=== PATIENT | male | born 1955 | race Caucasian/White ===

== ENCOUNTER 2022-10-08 07:18 | Outpatient (REF) | payer MEDICARE, OTHER, SELFPAY ==
[2022-10-08 07:50] LABS: MANUAL DIFF FLAG NO
[2022-10-08 08:20] LABS: Basophils Percent Auto 0.6 % (0-2); Eosinophils Absolute Auto 0.1 X10*3/uL (0.0-0.4); Eosinophils Percent Auto 2.2 % (0-4); Hematocrit 40.2 % (42.0-52.0); Hemoglobin 13.8 g/dl (14.0-18.0); Imm Gran Abs Auto 0.01 X10*3/uL (0.00-0.03); Imm Gran Pct Auto 0.3 % (0.0-0.4); Lymphocytes Absolute Auto 1.3 X10*3/uL (1.2-4.9); Lymphocytes Percent Auto 34.6 % (20-40); Mean Corpuscular HGB Conc 34.3 g/dl (31.0-36.0); Mean Corpuscular Hemoglobin 34.1 pg (27.0-33.0); Mean Corpuscular Volume 99.3 fL (80.0-98.0); Mean Platelet Volume 9.6 fL (9.4-12.4); Monocytes Absolute Auto 0.4 X10*3/uL (0.1-1.2); Monocytes Percent Auto 10.5 % (2-11); Neutrophils Absolute Auto 1.9 x10*3/uL (2.0-8.3); Neutrophils Percent Auto 51.8 % (45-73); Platelet Count 175 X10*3/uL (160-400); Red Blood Count 4.05 X10*6/uL (4.60-5.80); Red Cell Distribution Width 12.3 % (11.0-16.0); White Blood Count 3.6 X10*3/uL (4.8-10.8)
[2022-10-08 09:02] LABS: Appearance Urine Clear; Color Urine Yellow; Glucose Urine UA Negative (Negative); Leukocyte Esterase Urine Negative (Negative); Nitrite Urine Negative (Negative); PH 5.5 (5.0-9.0); Specific Gravity - Urine 1.025 (1.005-1.025); Urine Blood Negative (Negative); Urine Ketones Negative (Negative); Urine Protein Negative (Neg-Trace)
[2022-10-08 09:09] LABS: Alanine Aminotransferase 38 U/L (0-40); Albumin Level 4.2 g/dL (3.5-5.0); Alkaline Phosphatase 67 U/L (39-117); Anion Gap 12 (12-20); Aspartate Amino Transferase 36 U/L (5-37); Bilirubin Total 0.5 mg/dL (0.0-1.0); Blood Urea Nitrogen 21 mg/dL (9-16); Calcium 9.7 mg/dL (8.4-10.2); Carbon Dioxide 28 mmol/L (22-29); Chloride 105 mmol/L (96-108); Cholesterol 263 mg/dL; Estimated Glomerular Filt Rate > 60; Free T4 (Free Thyroxine) 0.94 ng/dL (0.71-1.85); Glucose Fasting 93 mg/dL (60-99); HDL Cholesterol 83 mg/dL; LDL Cholesterol Calculated 168 mg/dl; Potassium 5.5 mmol/L (3.3-5.1); Sodium 139 mmol/L (135-145); Thyroid Stimulating Hormone 1.28 uIU/mL (0.32-4.0); Total Protein 6.2 g/dL (6.5-8.0); Triglycerides 64 mg/dL
[2022-10-08 09:34] LABS: Creatinine Urine 139.63 mg/dL; Microalbum/Creatinine Ratio Ur 3.5 ug/mg cr
[2022-10-11 02:54] LABS: Triiodothyronine T3 Total 62 ng/dL (76-181)
== END 2022-10-08 07:19 | disposition home or self-care (01) ==
LOC: HO.LAB 07:18
PROVIDERS: PCP Family Medicine; Visit Provider Family Medicine
DX: Z00.00 Encounter for general adult medical examination without abnormal findings (principal); I10 Essential (primary) hypertension; E03.9 Hypothyroidism, unspecified; Z12.5 Encounter for screening for malignant neoplasm of prostate
CPT/HCPCS: 36415; 80053; 80061; 81003; 82043; 84153; 84439; 84443; 84480; 85025

== ENCOUNTER 2022-10-11 07:07 | Outpatient (REF) | payer MEDICARE, SELFPAY ==
[2022-10-11 13:45] LABS: Anion Gap 12 (12-20); Blood Urea Nitrogen 27 mg/dL (9-16); Calcium 9.1 mg/dL (8.4-10.2); Carbon Dioxide 28 mmol/L (22-29); Chloride 104 mmol/L (96-108); Estimated Glomerular Filt Rate > 60; Glucose Fasting 84 mg/dL (60-99); Sodium 139 mmol/L (135-145)
== END 2022-10-11 07:08 | disposition home or self-care (01) ==
LOC: HO.WFDLDS 07:07
PROVIDERS: Visit Provider Family Medicine
DX: E87.5 Hyperkalemia (principal)
CPT/HCPCS: 36415; 80048

== ENCOUNTER → 2022-10-19 13:41 | Outpatient (BNVA) | payer MEDICARE, OTHER, SELFPAY | PROVIDERS: PCP Family Medicine; Referring Provider Family Medicine; Visit Provider Internal Medicine | DX: I95.1 Orthostatic hypotension (principal); E03.9 Hypothyroidism, unspecified | CPT/HCPCS: 93005; 99202 ==

== ENCOUNTER → 2023-01-18 13:59 | Outpatient (BNVA) | payer MEDICARE, OTHER, SELFPAY | PROVIDERS: PCP Family Medicine; Referring Provider Family Medicine; Visit Provider Internal Medicine | DX: I95.1 Orthostatic hypotension (principal) | CPT/HCPCS: 99212 ==

== ENCOUNTER 2023-02-03 02:16 | Emergency (ER) | payer MEDICARE, OTHER, SELFPAY ==
--- NOTE | 2023-02-03 02:21 | ECG_ITS ---
Test Reason : syncope Blood Pressure : / mmHG Vent. Rate : 043 BPM Atrial Rate : 043 BPM P-R Int : 196 ms QRS Dur : 090 ms QT Int : 480 ms P-R-T Axes : 068 035 059 degrees QTc Int : 405 ms Marked sinus bradycardia Minimal voltage criteria for LVH, may be normal variant ( Sokolow-Olguin ) ST elevation, consider early repolarization, pericarditis, or injury Abnormal ECG No previous ECGs available Referred By: Generic ED Physician Electronically Signed By:ALIDA EDWARD MD
[2023-02-03 02:25] VITALS: BP 121/75; PULSE 40; RESP 16; TEMP 36.5; O2SAT 98; BMI 24.3
[2023-02-03 02:50] LABS: MANUAL DIFF FLAG NO
[2023-02-03 02:51] LABS: Basophils Percent Auto 0.5 % (0-2); Eosinophils Absolute Auto 0.1 X10*3/uL (0.0-0.4); Hematocrit 37.6 % (42.0-52.0); Hemoglobin 13.5 g/dl (14.0-18.0); Imm Gran Abs Auto 0.01 X10*3/uL (0.00-0.03); Imm Gran Pct Auto 0.3 % (0.0-0.4); Lymphocytes Absolute Auto 1.4 X10*3/uL (1.2-4.9); Lymphocytes Percent Auto 39.2 % (20-40); Mean Corpuscular HGB Conc 35.9 g/dl (31.0-36.0); Mean Corpuscular Hemoglobin 34.3 pg (27.0-33.0); Mean Corpuscular Volume 95.4 fL (80.0-98.0); Mean Platelet Volume 8.9 fL (9.4-12.4); Monocytes Absolute Auto 0.4 X10*3/uL (0.1-1.2); Neutrophils Absolute Auto 1.7 x10*3/uL (2.0-8.3); Platelet Count 160 X10*3/uL (160-400); Red Blood Count 3.94 X10*6/uL (4.60-5.80); Red Cell Distribution Width 12.4 % (11.0-16.0); White Blood Count 3.7 X10*3/uL (4.8-10.8)
--- NOTE | 2023-02-03 02:59 | ED.SYNCOPE ---
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 Patient denies any chest pain or palpitation bradycardic 35-40 beats per minute which is his baseline Related Data Home Medications Medication Instructions Recorded Confirmed multivitamin (Multiple Vitamins 1 tab PO DAILY 10/19/22 01/18/23 tablet) omega 2-rsn-xqo-fish oil 60 mg-90 1 cap PO DAILY 10/19/22 01/18/23 mg-500 mg capsule (Fish Oil) electrolytes-dextrose oral solution 5 ml PO Q15M PRN 01/18/23 01/18/23 Previous Rx's Medication Instructions Recorded levothyroxine 75 mcg tablet 75 mcg PO DAILY 90 days #90 tabs 12/09/22 Allergies Allergy/AdvReac Type Severity Reaction Status Date / Time No Known Allergies Allergy Verified 02/03/23 02:31 Review of Systems Review of Systems: Yes all other systems are reviewed and are negative [facility] Past Medical History Medical History Hypothyroidism Family History Family History Maternal Grandfather Diabetes Hypertension Maternal Grandmother Hypertension Diabetes Social History Social History Housing: House Patient Tobacco Use Status: Never used Tobacco Second Hand Smoke Exposure: No Advance Directives: No Advance Directives Information Provided: Yes service: No Current occupational status: retired Physical Exam Vital Signs: Vital Signs: Last Vital Signs Temp 97.7 F 02/03/23 02:25 Pulse 46 L 02/03/23 03:11 Resp 16 02/03/23 02:25 BP 109/72 02/03/23 03:11 Pulse Ox 98 02/03/23 02:25 O2 Del Method Room Air 02/03/23 02:25 BMI result Body Mass Index 24.3 Appearance: Alert. Oriented X3. No acute distress. Eyes: PERRLA, No Nystagmus ENT: Pharynx normal. Oral Mucosa moist Neck: Normal inspection. Neck supple. CVS: Bradycardic, no rub/murmur/ gallop Pulses normal. Respiratory: No respiratory distress. Equal air entry bilateral, no wheezing/rales/rhonchi Abdomen: Soft and nontender. Bowel sounds are present, no mass palpable, no CVA tenderness Skin: Skin warm and dry. Normal skin color. Normal skin turgor. Extremities: No lower extremity edema. No calf tenderness Neuro: Oriented X 3. No motor deficit. No sensory deficit.No cerebellar signs , cranial nerves II-XII intact Medications Administered Discontinued Medications Generic Name Dose Route Start Last Admin Trade Name Freq PRN Reason Stop Dose Admin Sodium Chloride 1,000 mls @ 999 mls/hr 02/03/23 03:08 02/03/23 03:31 Ns IV 02/03/23 04:08 999 mls/hr .Q1H1M ONE Administration Medical Decision Making Medical Decision Making [facility] Narrative: Patient with history of orthostatic hypertension came with syncope episode likely from micturition hypotension with decreased fluid intake and work out outside in the heat. 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 02/03/23 02:46 02/03/23 02:46 Labs: Lab Results 02/03/23 02/03/23 02/03/23 Range/Units 02:46 02:46 02:46 WBC 3.7 L (4.8-10.8) X10*3/uL RBC 3.94 L (4.60-5.80) X10*6/uL Hgb 13.5 L (14.0-18.0) g/dl Hct 37.6 L (42.0-52.0) % MCV 95.4 (80.0-98.0) fL MCH 34.3 H (27.0-33.0) pg MCHC 35.9 (31.0-36.0) g/dl RDW 12.4 (11.0-16.0) % Plt Count 160 (160-400) X10*3/uL MPV 8.9 L (9.4-12.4) fL Immature Gran % (Auto) 0.3 (0.0-0.4) % Neut % (Auto) 45.0 (45-73) % Lymph % (Auto) 39.2 (20-40) % Placer % (Auto) 12.0 H (2-11) % Eos % (Auto) 3.0 (0-4) % Baso % (Auto) 0.5 (0-2) % Lymph # (Auto) 1.4 (1.2-4.9) X10*3/uL Placer # (Auto) 0.4 (0.1-1.2) X10*3/uL Eos # (Auto) 0.1 (0.0-0.4) X10*3/uL Baso # (Auto) 0.0 (0.0-0.2) X10*3/uL Abs Immat Gran (auto) 0.01 (0.00-0.03) X10*3/uL Absolute Neuts (auto) 1.7 L (2.0-8.3) x10*3/uL Absolute Nucleated RBC 0.000 (0.0-0.012) X10*3/uL Nucleated RBC % (auto) 0.0 (0.0-0.2) /100WBC Sodium 139 (135-145) mmol/L Potassium 4.2 (3.3-5.1) mmol/L Chloride 105 (96-108) mmol/L Carbon Dioxide 27 (22-29) mmol/L Anion Gap 11 L (12-20) BUN 32 H (9-16) mg/dL Creatinine 1.15 (0.5-1.4) mg/dL Estim Creat Clear Calc 59.8 Estimated GFR > 60 Random Glucose 102 (60-115) mg/dL Calcium 9.4 (8.4-10.2) mg/dL Total Creatine Kinase 564 H (38-174) U/L Troponin I High Sens 11.3 (<3.5-35.0) ng/L Urine Color Urine Appearance Urine pH (5.0-9.0) Ur Specific [place] (1.005-1.025) Urine Protein (Neg-Trace) mg/dL Urine Glucose (UA) (Negative) mg/dL Urine Ketones (Negative) mg/dL Urine Blood (Negative) Urine Nitrite (Negative) Ur Leukocyte Esterase (Negative) 02/03/23 02/03/23 Range/Units 04:12 04:18 WBC (4.8-10.8) X10*3/uL RBC (4.60-5.80) X10*6/uL Hgb (14.0-18.0) g/dl Hct (42.0-52.0) % MCV (80.0-98.0) fL MCH (27.0-33.0) pg MCHC (31.0-36.0) g/dl RDW (11.0-16.0) % Plt Count (160-400) X10*3/uL MPV (9.4-12.4) fL Immature Gran % (Auto) (0.0-0.4) % Neut % (Auto) (45-73) % Lymph % (Auto) (20-40) % Placer % (Auto) (2-11) % Eos % (Auto) (0-4) % Baso % (Auto) (0-2) % Lymph # (Auto) (1.2-4.9) X10*3/uL Placer # (Auto) (0.1-1.2) X10*3/uL Eos # (Auto) (0.0-0.4) X10*3/uL Baso # (Auto) (0.0-0.2) X10*3/uL Abs Immat Gran (auto) (0.00-0.03) X10*3/uL Absolute Neuts (auto) (2.0-8.3) x10*3/uL Absolute Nucleated RBC (0.0-0.012) X10*3/uL Nucleated RBC % (auto) (0.0-0.2) /100WBC Sodium (135-145) mmol/L Potassium (3.3-5.1) mmol/L Chloride (96-108) mmol/L Carbon Dioxide (22-29) mmol/L Anion Gap (12-20) BUN (9-16) mg/dL Creatinine (0.5-1.4) mg/dL Estim Creat Clear Calc Estimated GFR Random Glucose (60-115) mg/dL Calcium (8.4-10.2) mg/dL Total Creatine Kinase (38-174) U/L Troponin I High Sens 11.2 (<3.5-35.0) ng/L Urine Color Yellow Urine Appearance Clear Urine pH 5.5 (5.0-9.0) Ur Specific [place] 1.020 (1.005-1.025) Urine Protein Negative (Neg-Trace) mg/dL Urine Glucose (UA) Negative (Negative) mg/dL Urine Ketones Negative (Negative) mg/dL Urine Blood Negative (Negative) Urine Nitrite Negative (Negative) Ur Leukocyte Esterase Negative (Negative) Independent Interpretation I performed an independent interpretation of an: EKG Interpretation: Sinus bradycardia heart rate 43 beats per minute LVH early repolarization changes no acute ischemia Discharge Plan Discharge Clinical Impression: Orthostatic hypotension Patient Disposition: Home, Self-Care Instructions: Hypotension (ED) Additional Instructions: Drink plenty of fluids Stay in a cool shaded area 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
[2023-02-03 03:05] LABS: Anion Gap 11 (12-20); Blood Urea Nitrogen 32 mg/dL (9-16); Calcium 9.4 mg/dL (8.4-10.2); Carbon Dioxide 27 mmol/L (22-29); Chloride 105 mmol/L (96-108); Creatinine Clr Calc Pharmacy 59.8; Estimated Glomerular Filt Rate > 60; Glucose Random 102 mg/dL (60-115); Potassium 4.2 mmol/L (3.3-5.1); Sodium 139 mmol/L (135-145)
[2023-02-03 03:08] VITALS: BP 106/64; PULSE 38
[2023-02-03 03:10] VITALS: BP 104/73; PULSE 43
[2023-02-03 03:11] VITALS: BP 109/72; PULSE 46
[2023-02-03 03:12] LABS: Troponin-I High Sensitivity 11.3 ng/L (<3.5-35.0)
[2023-02-03] MEDS: 0.9 % Sodium Chloride 1,000 ML 999 ML IV (03:31)
[2023-02-03 04:19] LABS: Appearance Urine Clear; Color Urine Yellow; Glucose Urine UA Negative (Negative); Leukocyte Esterase Urine Negative (Negative); Nitrite Urine Negative (Negative); PH 5.5 (5.0-9.0); Urine Blood Negative (Negative); Urine Ketones Negative (Negative); Urine Protein Negative (Neg-Trace)
[2023-02-03 04:41] LABS: Troponin-I High Sensitivity 11.2 ng/L (<3.5-35.0)
== END 2023-02-03 05:12 | disposition home or self-care (01) ==
PROVIDERS: Emergency Provider Internal Medicine; PCP Family Medicine
DX: I95.1 Orthostatic hypotension (principal); R00.1 Bradycardia, unspecified; Z79.899 Other long term (current) drug therapy
CPT/HCPCS: 36415; 80048; 81003; 82550; 84484; 85025; 93005; 99284

== ENCOUNTER 2023-03-13 11:43 | Outpatient (REF) | payer MEDICARE, OTHER, SELFPAY ==
[2023-03-13 14:26] LABS: Hematocrit 42.6 % (42.0-52.0); Hemoglobin 14.9 g/dl (14.0-18.0); Mean Corpuscular Volume 97.3 fL (80.0-98.0); Mean Platelet Volume 9.4 fL (9.4-12.4); Platelet Count 195 X10*3/uL (160-400); Red Blood Count 4.38 X10*6/uL (4.60-5.80); Red Cell Distribution Width 12.1 % (11.0-16.0); White Blood Count 6.3 X10*3/uL (4.8-10.8)
[2023-03-13 15:11] LABS: Folate > 20.0 ng/mL (> or = 4.0); TSH reflex Free T4 1.08 uIU/mL (0.32-4.0); Vitamin B12 1041 pg/mL (200-900)
== END 2023-03-13 11:44 | disposition home or self-care (01) ==
LOC: HO.WFDLDS 11:43
PROVIDERS: Visit Provider Nurse Practitioner Family
DX: E03.9 Hypothyroidism, unspecified (principal); D64.9 Anemia, unspecified
CPT/HCPCS: 36415; 82607; 82746; 84443; 85027

== ENCOUNTER 2023-05-27 11:54 | Emergency (ER) | payer MEDICARE, OTHER, SELFPAY ==
--- NOTE | ~2023-05-27 | XR_ITS ---
EXAMINATION: XR WRIST, RIGHT CLINICAL INFORMATION: Status post fall on outstretched hand. COMPARISON: None available. TECHNIQUE: PA, lateral, and oblique views of the right wrist. FINDINGS: The bones and soft tissues are normal. No fracture. Alignment is anatomic with normal joint spaces. No erosions or abnormal soft tissue calcifications. XR/XR wrist RT min 3V IMPRESSION: Unremarkable right wrist.
[2023-05-27 11:57] VITALS: BP 118/76; PULSE 68; RESP 18; TEMP 36.8; O2SAT 96; BMI 24.3
--- NOTE | 2023-05-27 11:57 | ED.UPPEXIN ---
HPI - Extremity Injury (Upper) General Chief Complaint: Extremity Injury, Upper Stated Complaint: r wrist inj Time Seen by Provider: 05/27/23 12:00 Source: patient Mode of arrival: ambulatory Limitations: no limitations History of Present Illness HPI narrative: Patient is a 67-year-old male, right-hand dominant, presents emergency department for a mechanical slip and fall on an outstretched hand earlier today while running a race without any head strike or loss of consciousness. He was able to complete the race and drive himself home 1 hour away. Pain is localized to the right wrist with tingling to the fingers. 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 Related Data Home Medications Medication Instructions Recorded Confirmed multivitamin (Multiple Vitamins 1 tab PO DAILY 10/19/22 03/13/23 tablet) omega 2-ush-xpk-fish oil 60 mg-90 1 cap PO DAILY 10/19/22 03/13/23 mg-500 mg capsule (Fish Oil) electrolytes-dextrose oral solution 5 ml PO Q15M PRN 01/18/23 03/13/23 Previous Rx's Medication Instructions Recorded levothyroxine 75 mcg tablet 75 mcg PO DAILY 90 days #90 tabs 12/09/22 Allergies Allergy/AdvReac Type Severity Reaction Status Date / Time No Known Allergies Allergy Verified 05/27/23 12:00 Review of Systems Review of Systems: Yes all other systems are reviewed and are negative PMFSH Past Medical History Attestation statement: The following information was validated with the patient. Source: old records reviewed Medical History Hypothyroidism Family History Family History Maternal Grandfather Diabetes Hypertension Maternal Grandmother Hypertension Diabetes Social History Social History Housing: House Alcohol intake: never Patient Tobacco Use Status: Never used Tobacco Smoked in Last 30 Days: No e-Cigarette/Vaping Use: Never Used Second Hand Smoke Exposure: No Use of substances other than those prescribed or required for medical reasons: No Advance Directives: No Advance Directives Information Provided: Yes service: No Current occupational status: retired Cognitive needs: No Hearing needs: No Vision needs: No Physical Exam Vital Signs: Vital Signs: Last Vital Signs Temp 98.2 F 05/27/23 11:57 Pulse 68 05/27/23 11:57 Resp 18 05/27/23 11:57 BP 118/76 05/27/23 11:57 Pulse Ox 96 05/27/23 11:57 O2 Del Method Room Air 05/27/23 11:57 BMI result Body Mass Index 24.3 Appearance: Alert.?Oriented to person, place and time. No acute distress.?Normal affect. Eyes: Pupils equal, round and reactive to light.? Neck: Normal inspection.? Neck supple.?? CVS: Heart sounds normal. Normal heart rate and rhythm.? Pulses normal.?? Respiratory: No respiratory distress.? Lung sounds clear to auscultation bilaterally?? Abdomen: Soft and non-tender. Skin: Skin warm and dry.? Normal skin color.? Extremities: Localized swelling to right wrist, no obvious deformity, 2+ radial pulse bilaterally Neuro: Moves all extremities spontaneously. Sensation intact bilaterally. No focal neuro deficits. Ambulates with normal steady gait. Course Course Course Narrative: This is an RME: Additional HPI, ROS, PE not included below will be deferred to primary provider. Patient is a 67-year-old male, right-hand dominant, presents emergency department for a mechanical slip and fall on an outstretched hand without any head strike or loss of consciousness. Pain is localized to the right wrist with tingling to the fingers. 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 No additional physical complaints. no head strike or LOC, unlikely ant ICH, follow-up with mechanical in nature to a slip while running. Extremity is neurovascularly intact distally. XR revealing no acute fracture dislocation. Differential Diagnosis Differential Diagnoses: The differential diagnosis associated with the presentation includes (Fracture, dislocation, sprain, neurovascular compromise) Independent Interpretation I performed an independent interpretation of an: Plain X-Ray Interpretation: Have personally interpreted XR imaging of the right wrist and agree with radiologist impression no acute fracture Radiology Impression Discussion of test interpretation with radiology: I have reviewed the radiologist's reading. Radiologist Impression: XR/XR wrist RT min 3V IMPRESSION: Unremarkable right wrist. ? Prescription Management I considered prescription management with: Pain Medication (Appropriate pain management with acetaminophen/ibuprofen) Discharge Plan Discharge Clinical Impression: Sprain and strain of wrist Patient Disposition: Home, Self-Care Instructions: Wrist Sprain (ED) Additional Instructions: Your x-ray today does not show any fracture dislocation. This is very reassuring. Please be sure to rest, apply ice to the area for 10-15 minutes 3-4 times daily, use Miko bandage for compression, elevate the arm when possible. You can take ibuprofen 200 mg, 3 tablets (600mg) every 6-8 hours as needed for pain, in addition to Tylenol 500 mg, 2 tablets (1,000mg) every 4-6 hours as needed for pain, but not to exceed 3 doses daily (3,000mg).? Return back to emergency department with any new or worsening symptoms or concerns. Follow-up with your primary care provider as needed. Prescriptions: No Action levothyroxine 75 mcg tablet 75 mcg PO DAILY 90 Days Qty: 90 3RF omega 4-yht-vuy-fish oil [Fish Oil] 60-90-500 mg capsule 1 cap PO DAILY multivitamin [Multiple Vitamins] Tablet 1 tab PO DAILY electrolytes-dextrose Solution 5 ml PO Q15M PRN Rx Instructions: until vomiting and/or diarrhea resolve for no more than 4 hours duration Referrals: Miguel Obrien MD [Primary Care Provider] - Interventions: ED Discharge Assessment Last Done: 05/27/23 12:47 Discharge Date/Time: 05/27/23 12:47
== END 2023-05-27 12:47 | disposition home or self-care (01) ==
PROVIDERS: Emergency Provider Emergency Medicine; PCP Family Medicine
DX: S63.501A Unspecified sprain of right wrist, initial encounter (principal); S66.911A Strain of unspecified muscle, fascia and tendon at wrist and hand level, right hand, initial encounter; W01.0XXA Fall on same level from slipping, tripping and stumbling without subsequent striking against object, initial encounter; Y93.02 Activity, running; Y92.9 Unspecified place or not applicable; Y99.9 Unspecified external cause status
CPT/HCPCS: 73110; 99283

== ENCOUNTER 2023-05-29 06:16 | Outpatient (REF) | payer MEDICARE, OTHER, SELFPAY ==
[2023-05-29 08:00] LABS: TSH reflex Free T4 1.43 uIU/mL (0.32-4.0)
== END 2023-05-29 06:17 | disposition home or self-care (01) ==
LOC: HO.LAB 06:16
PROVIDERS: PCP Family Medicine; Visit Provider Nurse Practitioner Family
DX: E03.9 Hypothyroidism, unspecified (principal)
CPT/HCPCS: 36415; 84443

== ENCOUNTER 2023-06-05 11:36 | Outpatient (AMB) | payer MEDICARE, OTHER, SELFPAY ==
[2023-06-05 11:45] VITALS: BP 110/62; PULSE 52; O2SAT 98; BMI 24.4
--- NOTE | 2023-06-05 11:45 | A.OFFPC_ITS ---
Vital Signs 06/05/23 11:45 Height 5 ft 7 in Weight 156 lb BMI 24.4 BP 110/62 Blood Pressure Location Rt brachial Position Sitting Pulse 52 Pulse Source Pulse Oximeter Pulse Oximetry (%) 98 Oxygen Delivery Method Room Air Intake Visit Reasons: hypothyroidism Intake Note: Patient is here to follow up on hypothyroid Allergies No Known Allergies Allergy (Verified 06/05/23 11:50) Tobacco use date assessed: 06/05/23 Fall risk assessment: 2 + Falls in past year Last assessed Fall Risk: 06/05/23 Dental Screening Dental Screen Date: 06/05/23 Did you have a dental visit in the last 12 months?: Yes Did you have a dental problem in the last 6 months where you did not have access to dental care?: No Was dental information given to patient?: No HPI hypothyroidism HPI Details 67 y/o male presents to f/u hypothyroidism. TSH level checked 05/29/23 and was 1.43. He is on levothyroxine 75 mcg daily. Pt also had a mild anemia with most recent lab draws. Pt reports he had sprained his wrist and had gone to the emergency department after a mechanical slip/fall on an outstretched hand while running a race. Pain was localized to the R wrist. PFSH Medical History (Updated 06/05/23 @ 12:18 by Yvon Maurice) Hypothyroidism Surgical History (Updated 06/05/23 @ 11:52 by Ayleen Paula [facility]) Hx of biopsy Family History Maternal Grandfather Diabetes Hypertension Maternal Grandmother Hypertension Diabetes Social History Housing: House Alcohol intake: never Patient Tobacco Use Status: Never used Tobacco e-Cigarette/Vaping Use: Never Used Second Hand Smoke Exposure: No service: No Current occupational status: retired Cognitive needs: No Hearing needs: No Vision needs: No Review of Systems Const Denies chills, Denies fatigue, Denies fever(s), Denies headache(s) and Denies weakness ENT Denies dizziness and Denies headache(s) Card Denies dyspnea Resp Denies cough, Denies dyspnea, Denies wheezing and Denies other (shortness of breath) Musc Denies numbness and Denies tingling Neuro Denies dizziness, Denies headache(s), Denies numbness, Denies tingling and Denies weakness Psych Denies anxiety and Denies depression Endo Denies fatigue Aller/Immun Denies wheezing Physical exam (Primary Care) Vital Signs: Last Vital Signs Pulse 52 06/05/23 11:45 BP 110/62 06/05/23 11:45 Pulse Ox 98 06/05/23 11:45 Oxygen Delivery Method Room Air 06/05/23 11:45 BMI result Body Mass Index 24.4 Tobacco/Smoking Status: Tobacco use Status Tobacco use date assessed 06/05/23 06/05/23 11:56 Patient Tobacco Use Status Never used Tobacco 06/05/23 11:47 e-Cigarette/Vaping Use Never Used 06/05/23 11:47 Const General: well developed; No acute distress Nutritional Appearance: well nourished Orientation/consciousness: patient oriented x3 HENMT Head: Yes normocephalic and Yes atraumatic Eyes General: appearance normal, both eyes and all related structures Pupils: Equal, round and reactive pupils present EOM: EOMs intact bilaterally Resp Effort & Inspection: normal respiratory effort Neuro General: patient oriented x3 and gait normal Cranial nerves: Yes Equal, round and reactive pupils present Psych Affect: normal affect Assessment and Plan Assessment & Plan (1) Hypothyroidism: Code(s): E03.9 - Hypothyroidism, unspecified Plan: TSH is in normal range and level on levothyroxine 75 mcg daily Continue current medication regimen Follow-up in about 6 months (2) Mild anemia: Code(s): D64.9 - Anemia, unspecified Plan: This has resolved (3) Right wrist pain: Code(s): M25.531 - Pain in right wrist Plan: Right wrist pain with some numbness in an ulnar distribution after falling on his shoulder. Likely some nerve compression/impingement Strength is normal on exam Should continue to improve spontaneously He will let me know if not improving in a few weeks or if worsening or worsening strength/dropping items. Orders: Orders Basic Metabolic Panel Today E03.9 - Hypothyroidism, unspecified, Z00.00 - Encounter for general adult medical examination without abnormal findings Triiodothyronine T3 Total Today E03.9 - Hypothyroidism, unspecified Free T4 (Free Thyroxine) Today E03.9 - Hypothyroidism, unspecified Thyroid Stimulating Hormone Today E03.9 - Hypothyroidism, unspecified Coding Level of Care Code Est Pt Level 3 (95526) Diagnoses Hypothyroidism E03.9 Mild anemia D64.9 Right wrist pain M25.531
== END 2023-06-05 12:22 | disposition home or self-care (01) ==
PROVIDERS: Visit Provider Family Medicine
DX: E03.9 Hypothyroidism, unspecified (principal); D64.9 Anemia, unspecified; M25.531 Pain in right wrist
CPT/HCPCS: 99213

== ENCOUNTER 2023-11-24 06:04 | Outpatient (REF) | payer MEDICARE, SELFPAY ==
[2023-11-24 08:06] LABS: Anion Gap 11 (12-20); Blood Urea Nitrogen 25 mg/dL (9-16); Calcium 9.9 mg/dL (8.4-10.2); Carbon Dioxide 31 mmol/L (22-29); Chloride 105 mmol/L (96-108); Estimated Glomerular Filt Rate > 60; Glucose Random 80 mg/dL (60-115); Potassium 5.5 mmol/L (3.3-5.1); Sodium 141 mmol/L (135-145)
[2023-11-24 08:29] LABS: Free T4 (Free Thyroxine) 0.91 ng/dL (0.71-1.85); Thyroid Stimulating Hormone 1.71 uIU/mL (0.32-4.0)
[2023-11-25 07:58] LABS: Triiodothyronine T3 Total 77 ng/dL (76-181)
== END 2023-11-24 06:05 | disposition home or self-care (01) ==
LOC: HO.LAB 06:04
PROVIDERS: PCP Family Medicine; Visit Provider Family Medicine
DX: Z00.00 Encounter for general adult medical examination without abnormal findings (principal); E03.9 Hypothyroidism, unspecified
CPT/HCPCS: 36415; 80048; 84439; 84443; 84480

== ENCOUNTER 2023-12-04 15:27 | Outpatient (AMB) | payer MEDICARE, SELFPAY ==
[2023-12-04 15:42] VITALS: BP 124/70; PULSE 54; RESP 13; TEMP 36.4; O2SAT 99; BMI 24.7
--- NOTE | 2023-12-04 15:42 | MHC.PC.OV ---
Vital Signs 12/04/23 15:42 Height 5 ft 7 in Weight 158 lb BMI 24.7 BP 124/70 Blood Pressure Location Rt brachial Position Sitting Respiration 13 Pulse 54 Pulse Source Pulse Oximeter Temp 97.6 F Temp Source Temporal Artery Scan Pulse Oximetry (%) 99 Oxygen Delivery Method Room Air Intake Visit Reasons: hypothyroidism Intake Note: Patient states that left arm has history of melanoma removed and one incision has not healed fully yet and a staple was recently pulled out. 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 Labs were drawn 11/24/23. Reviewed labs with pt. TSH level 1.71. He is on levothyroxine 75mcg daily. Potassium level 5.5. [facility] Medical History Hypothyroidism Surgical History (Updated 12/04/23 @ 15:51 by Molly Blanchard MA) Status post Mohs surgery Hx of biopsy Family History (Updated 12/04/23 @ 15:52 by Molly Blanchard MA) Maternal Grandfather Diabetes Hypertension Maternal Grandmother Hypertension Diabetes Social History Housing: House Alcohol intake: never Patient Tobacco Use Status: Never used Tobacco e-Cigarette/Vaping Use: Never Used Second Hand Smoke Exposure: No service: No Current occupational status: retired Cognitive needs: No Hearing needs: No Vision needs: No Review of Systems Const Denies chills, Denies fatigue, Denies fever(s), Denies headache(s) and Denies weakness ENT Denies dizziness and Denies headache(s) Card Denies chest pain, Denies lightheadedness, Denies dyspnea and Denies other (Palpitations) Resp Denies cough, Denies dyspnea, Denies wheezing and Denies other ( shortness of breath) Musc Denies numbness and Denies tingling Neuro Denies dizziness, Denies headache(s), Denies numbness, Denies tingling, Denies paresthesias and Denies weakness Psych Denies anxiety and Denies depression Endo Denies fatigue Aller/Immun Denies wheezing Physical exam (Primary Care) Vital Signs: Last Vital Signs Temp 97.6 F 12/04/23 15:42 Pulse 54 12/04/23 15:42 Resp 13 12/04/23 15:42 BP 124/70 12/04/23 15:42 Pulse Ox 99 12/04/23 15:42 Oxygen Delivery Method Room Air 12/04/23 15:42 BMI result Body Mass Index 24.7 Tobacco/Smoking Status: Tobacco use Status Tobacco use date assessed 12/04/23 12/04/23 15:52 Patient Tobacco Use Status Never used Tobacco 12/04/23 15:52 e-Cigarette/Vaping Use Never Used 12/04/23 15:52 Const General: no acute distress and well developed Nutritional Appearance: well nourished Orientation/consciousness: patient oriented x3 [facility] Head: Yes normocephalic and Yes atraumatic Eyes General: appearance normal, both eyes and all related structures Pupils: Equal, round and reactive pupils present EOM: EOMs intact bilaterally Resp Effort & Inspection: normal respiratory effort Auscultation: clear to auscultation bilaterally Cardio Rate: regular rate Rhythm: regular rhythm Heart sounds: S1 normal heart sound present, S2 normal heart sound present, no gallops, no murmurs and no rubs Neuro General: patient oriented x3 and gait normal Cranial nerves: Yes Equal, round and reactive pupils present Psych Affect: normal affect Assessment and Plan Assessment & Plan (1) Hypothyroidism: Code(s): E03.9 - Hypothyroidism, unspecified Plan: Thyroid?hormone?levels?are?all?within?normal?range Continue?levothyroxine?75?mcg?daily (2) Hyperkalemia: Code(s): E87.5 - Hyperkalemia Plan: Potassium?level?is?again?mildly?elevated. He?notes?that?he?is?eating?banana?chips?almost?every?day?and?often?does?not?get?enough?water Increase?hydration Decrease?high?potassium?foods?slightly We?can?follow?this?periodic (3) Skin cancer (melanoma): Code(s): C43.9 - Malignant melanoma of skin, unspecified Plan: S/p?excision No?evidence?of?infection Wound?is?mostly?healed?but?has?dry?edges. Advised?he?hydrate?well?and?use?a?moisturizer?that?has?no?dyes?or?perfumes. Follow-up?with?dermatology?if?not?completely?healing Orders: Orders Comprehensive [place]. Panel Fast Today Z00.00 - Encounter for general adult medical examination without abnormal findings Thyroid Stimulating Hormone Today E03.9 - Hypothyroidism, unspecified Lipid Panel Today Z00.00 - Encounter for general adult medical examination without abnormal findings Triiodothyronine T3 Total Today E03.9 - Hypothyroidism, unspecified Free T4 (Free Thyroxine) Today E03.9 - Hypothyroidism, unspecified UA and rflx microscopic Today Z00.00 - Encounter for general adult medical examination without abnormal findings Prostate Specific Antigen Scr Today Z12.5 - Encounter for screening for malignant neoplasm of prostate Microalbumin, Random (w Creat) Today I10 - Essential (primary) hypertension Complete Blood Count Auto Diff Today Z00.00 - Encounter for general adult medical examination without abnormal findings Medications: Refilled levothyroxine 75 mcg PO DAILY 90 tabs 3RF 90 days Coding Level of Care Code Est Pt Level 3 (30860) Diagnoses Hypothyroidism E03.9 Hyperkalemia E87.5 Skin cancer (melanoma) C43.9
== END 2023-12-04 16:53 | disposition home or self-care (01) ==
PROVIDERS: PCP Family Medicine; Visit Provider Family Medicine
DX: E03.9 Hypothyroidism, unspecified (principal); E87.5 Hyperkalemia; C43.9 Malignant melanoma of skin, unspecified
CPT/HCPCS: 99213

== ENCOUNTER 2023-12-18 10:56 | Outpatient (AMB) | payer MEDICARE, SELFPAY ==
[2023-12-18 10:58] VITALS: BP 131/76; PULSE 70; RESP 12; TEMP 36.8; O2SAT 100; BMI 24.7
--- NOTE | 2023-12-18 10:58 | AM.OFFWIN_ITS ---
Intake Vital Signs 3 12/18/23 10:58 Height 5 ft 7 in Weight 158 lb BMI 24.7 BP 131/76 Blood Pressure Location Lt brachial Position Standing Respiration 12 Pulse 70 Pulse Source Pulse Oximeter Temp 98.2 F Temp Source Temporal Artery Scan Pulse Oximetry (%) 100 Oxygen Delivery Method Room Air Intake Visit Reasons: Hip Pain Intake Note: Patient complains of right low back area feeling swollen and sore. R hip area radiating down the front and back of the right leg feels off but not painful. The only time the area feels off is when he is running. Patient reports cycling, rowing, and walking do not exacerbate the concern. 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 Started about 2 weeks ago radiates to right hip, radiates down lateral aspect of right leg, top of calf feels like finger pricks, bottom of foot with tingling only when running does not bother w other activities other than sitting for a while causes tightness in right glute. has tried stretching to help w/o relief. did not take medications, as this is not painful. denies overt trauma, fever, chills, spinal surgery denies red flag sx assoc w/ back pain. [facility] Medical History Hypothyroidism Surgical History (Updated 12/04/23 @ 15:51 by Molly Blanchard MA) Status post Mohs surgery Hx of biopsy Family History (Updated 12/04/23 @ 15:52 by Molly Blanchard MA) Maternal Grandfather Diabetes Hypertension Maternal Grandmother Hypertension Diabetes Social History Housing: House Alcohol intake: never Patient Tobacco Use Status: Never used Tobacco e-Cigarette/Vaping Use: Never Used Second Hand Smoke Exposure: No service: No Current occupational status: retired Cognitive needs: No Hearing needs: No Vision needs: No Review of Systems Const All systems reviewed & are unremarkable except as noted in HPI and below Physical Exam Vital Signs: Last Vital Signs Temp 98.2 F 12/18/23 10:58 Pulse 70 12/18/23 10:58 Resp 12 12/18/23 10:58 BP 131/76 12/18/23 10:58 Pulse Ox 100 12/18/23 10:58 Oxygen Delivery Method Room Air 12/18/23 10:58 BMI result Body Mass Index 24.7 General: Yes no CVA tenderness Back/Spine/Pelvis Back: no CVA tenderness Cervical Spine: normal cervical lordosis and cervical ROM normal Thoracic/Lumbar Spine: thoracic and lumbar spine normal to inspection Back/spine/pelvis image: 2 1. localized edema, pain w/ palpation over iliac crest & into R trochanter PEDROZA x 4, no edema, neurovasc intact Skin clear, no rash or erythema Assessment & Plan Assessment & Plan (1) Right hip pain: Code(s): M25.551 - Pain in right hip Plan: . (2) Trochanteric bursitis of right hip: Code(s): M70.61 - Trochanteric bursitis, right hip Plan: . Plan Discussed treatment options of PT, NSAIDS RX or OTC and referral to Ortho He opted for referral to Ortho for further eval and tx. ? cortisone injection or advanced imaging will leave this up to Ortho Ibu 800mg TID prn to help w. inflammation avoid activities that aggravate Orders: Referrals 2 Orthopedics Referral M25.551 - Pain in right hip, M70.61 - Trochanteric bursitis, right hip Coding Level of Care Code Est Pt Level 3 (93620) Diagnoses Right hip pain M25.551 Trochanteric bursitis of right hip M70.61
== END 2023-12-18 11:30 | disposition home or self-care (01) ==
PROVIDERS: PCP Family Medicine; Visit Provider Nurse Practitioner Family
DX: M25.551 Pain in right hip (principal); M70.61 Trochanteric bursitis, right hip
CPT/HCPCS: 99213

== ENCOUNTER 2023-12-29 09:51 | Outpatient (AMB) | payer MEDICARE, SELFPAY ==
[2023-12-29 09:57] VITALS: BMI 24.7
--- NOTE | 2023-12-29 09:57 | A.OFFVIS_ITS ---
Intake Vital Signs 12/29/23 09:57 Height 5 ft 7 in Weight 158 lb BMI 24.7 Intake Visit Reasons: New Pt - right hip pain Intake Note: Srini is a 68 year old male who presents today as a new patient with complaints of right hip pain. Allergies No Known Allergies Allergy (Verified 12/18/23 11:16) HPI New Pt - right hip pain HPI Details This is a 68 yo M with right hip pain. He was seen at [facility] walk in where he was instructed to use Ice and NSAIDS. Patient reports that he has had pain in the lateral aspect of the hip and in the lower back/SIJ that radiates down the leg. He has tingling in the foot. He has some increased soreness in the SI region. He is a cycler and this does not aggravate his symptoms, he finds that activity improves his symptoms. [facility] Medical History (Updated 12/29/23 @ 10:45 by Ethan Starkey MD) Hypothyroidism Surgical History (Updated 12/04/23 @ 15:51 by Molly Blanchard MA) Status post Mohs surgery Hx of biopsy Family History (Updated 12/04/23 @ 15:52 by Molly Blanchard MA) Maternal Grandfather Diabetes Hypertension Maternal Grandmother Hypertension Diabetes Social History Housing: House Alcohol intake: never Patient Tobacco Use Status: Never used Tobacco e-Cigarette/Vaping Use: Never Used Second Hand Smoke Exposure: No service: No Current occupational status: retired Cognitive needs: No Hearing needs: No Vision needs: No Physical Exam Vital Signs: BMI result Body Mass Index 24.7 Const General: cooperative, healthy appearing, no acute distress, well developed and alert HEENT Head: Yes normal to inspection, Yes normocephalic and Yes atraumatic Mouth: moist mucous membranes Eyes General: appearance normal, both eyes and all related structures EOM: EOMs intact bilaterally Chest Other: no audible wheezing. Resp Other: No audible wheezing Effort & Inspection: normal respiratory effort Back/Spine/Pelvis Cervical Spine: normal cervical lordosis Skin General skin exam: no rashes or lesions noted Neuro General: no focal motor deficits Extrem Other: neg impingement neg SLR neg lumbar compression Psych Appearance: grossly normal and well kempt Mental Status: mental status grossly normal Speech and movement: Normal speech and movement present Affect: normal affect Attitude: cooperative Results Reviewed Results Reviewed: .rad nl xray of pelvis and hips Assessment & Plan Assessment & Plan (1) Lumbar radiculopathy, right: Code(s): M54.16 - Radiculopathy, lumbar region Plan: Srini has classic symptoms of lumbar radiculopathy. Overall it mild. I had a long discussion recommend therapy. If it worsens this reach out to get a referral to spine. Orders: Orders PT Evaluation and Treatment Today M54.16 - Radiculopathy, lumbar region XR pelvis 1-2V Today M25.559 - Pain in unspecified hip Coding Level of Care Code New Pt Level 4 (32950) Diagnoses Lumbar radiculopathy, right M54.16
== END 2023-12-29 10:49 | disposition home or self-care (01) ==
PROVIDERS: PCP Family Medicine; Visit Provider Orthopaedic Surgery
DX: M54.16 Radiculopathy, lumbar region (principal)
CPT/HCPCS: 99204

== ENCOUNTER 2023-12-29 09:51 | Outpatient (REF) | payer MEDICARE, SELFPAY ==
--- NOTE | ~2023-12-29 | XR_ITS ---
EXAMINATION: XR PELVIS CLINICAL INFORMATION: Pain in unspecified hip COMPARISON: None available. TECHNIQUE: AP view of the pelvis. FINDINGS: No fracture. Hip joint spaces are maintained. Alignment is anatomic. Mild degenerative change of the symphysis pubis with subchondral sclerosis. There is mild sclerosis along the superior aspect of the left sacroiliac joint. Question of small erosions of the right sacroiliac joint. No abnormal soft tissue calcifications. XR/XR pelvis 1-2V IMPRESSION: 1. No significant abnormality of the hips. 2. Mild degenerative change of the symphysis pubis. 3. Question of small erosions of the right sacroiliac joint. Dedicated views of the sacroiliac joint could be obtained.
== END 2023-12-29 09:52 | disposition home or self-care (01) ==
LOC: HO.HOSX 09:51
PROVIDERS: PCP Family Medicine; Visit Provider Orthopaedic Surgery
DX: M25.551 Pain in right hip (principal); M54.16 Radiculopathy, lumbar region
CPT/HCPCS: 72170; 99202

== ENCOUNTER 2024-02-26 11:00 | Outpatient (RCR) | payer MEDICARE, SELFPAY ==
--- NOTE | 2024-01-03 14:49 | MHC.PT.EP ---
[facility] [place] [facility] [place] Office [place] Office [address] [phone] F: [phone] F: [phone] F: [phone] F: [phone] Physical Therapy Plan of Care Date of Evaluation: 01/03/24 Date of Surgery: NA Diagnosis: Lumbar radiculopathy, R Assessment: Srini is a 68 year old male who is referred to PT for Lumbar radiculopathy, R . He reports of having sudden onset pain in the R side of back and symptoms radiating down to R LE up to calf about 3 weeks back. He denies any trauma or falls. On PT examination he presented with mild TTP over R SI, 2/10 pain over R side back and R LE with sitting for more than 10 minutes, pain with trunk ROM, decreased muscle strength, altered pelvic symmetry and altered posture. He is independent with all ADLS but has pain with it. He enjoys running and biking but has pain with running. 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 He would benefit from skilled PT to address the aforementioned impairments and improve tolerance to functional activities. Frequency and Duration: The patient will be seen 2/week for 5 weeks Short Term Goals: 1. Pt will have 50% decrease in pain which will enable him to tolerate sitting, and SL without pain in 2 weeks. 2. Pt will be able to move his trunk through all planes of motion without pain which will enable him to dress his lower body without pain in 3 weeks. 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 Pt will demonstrate an increase in muscle strength by 1 grade which will enable to run and bike without pain in 5 weeks. 2. Pt will be independent with all HEP and return to PLOF in 5 weeks. Treatment Plan: Modalities to reduce pain, spasms and effusion. Manual therapy to restore motion and function. Therapeutic exercise to improve strength and flexibility. Neuromuscular re-education for posture and balance. Therapeutic activities to return to functional activities of daily living. Electronically signed by: Meli Le PT DPT Please sign and return to therapist. Thank you for your referral.
--- NOTE | 2024-03-29 09:49 | MHC.PT.DC ---
[facility] [place] [facility] [place] [facility] [place] Office [address]im[address] [phone] F: [phone] F: [phone] F: [phone] F: [phone] Physical Therapy Discharge Report Diagnosis: Lumbar radiculopathy, R Date of Surgery: NA Date of Evaluation: 01/03/24 Date of Discharge: 03/29/24 Treatments to Date: 6 Cancellations to Date: 0 No Shows to Date: Discharge Status: Improved Function Independent with HEP Discharge Summary: The patient was reporting nearly complete resolution of hip/SI joint pain with home exercise program. He was starting to complain of knee pain which did not seem specifically related to what he was worked up for here in physical therapy. These symptoms sounded more OA related and I encouraged him to initiate a plan of care with an orthopedic regarding his knees. The patient is discharged from this physical therapy plan of care. Electronically signed by: Batool Cerrato PT, DPT Please sign and return to therapist. Thank you for your referral.
== END 2024-03-29 09:49 | disposition home or self-care (01) ==
LOC: HO.PT 11:00
PROVIDERS: PCP Family Medicine; Visit Provider Orthopaedic Surgery
DX: M54.16 Radiculopathy, lumbar region (principal)
CPT/HCPCS: 97110; 97140; 97161

== ENCOUNTER 2024-02-26 13:17 | Outpatient (AMB) | payer MEDICARE, SELFPAY ==
[2024-02-26 13:19] VITALS: BP 120/60; PULSE 53; O2SAT 98; BMI 24.2
--- NOTE | 2024-02-26 13:19 | A.OFFVIS_ITS ---
Vital Signs 02/26/24 13:19 Height 5 ft 7 in Weight 154 lb 5.177 oz BMI 24.2 BP 120/60 Blood Pressure Location Lt brachial Position Sitting Pulse 53 Pulse Source Monitor Pulse Oximetry (%) 98 Oxygen Delivery Method Room Air Intake Visit Reasons: 1 yr f/up Allergies No Known Allergies Allergy (Verified 12/18/23 11:16) Medication List - Last Reviewed 02/26/24 by Batool Mejias electrolytes-dextrose 5 mL PO Q15M PRN glucosamine HCl 1,500 mg PO DAILY levothyroxine 75 mcg PO DAILY 90 days multivitamin (Multiple Vitamins tablet) 1 tab PO DAILY omega 0-xxb-osw-fish oil 60-90-500 mg (Fish Oil) 1 cap PO DAILY HPI Comments Details: Srini returns for follow up regarding orthostatic hypotension. He has different parts of the country over the last several decades. Most recently in [place]. At that time, saw cardiology. He carries a diagnosis of orthostatic hypotension. He does get orthostatic symptoms when he gets up from seated position. Very athletic lifestyle and he is extremely active. During exercise, he can lose as much as 5/10 L of fluid. Otherwise, no symptoms like angina or shortness of breath or in fact anything else. No known cardiomyopathy or coronary disease or myocardial infarction. Generally healthy otherwise. In the last year, he states he is actually doing quite well. No concerns like angina or shortness of breath or in fact anything cardiac sounding. Doing very well. Unlimited physical activity. [facility] Medical History (Updated 12/29/23 @ 10:45 by Ethan Starkey MD) Hypothyroidism Surgical History (Updated 12/04/23 @ 15:51 by KRUPA Galan) Status post Mohs surgery Hx of biopsy Family History (Updated 12/04/23 @ 15:52 by KRUPA Galan) Maternal Grandfather Diabetes Hypertension Maternal Grandmother Hypertension Diabetes Social History Housing: House Alcohol intake: never Patient Tobacco Use Status: Never used Tobacco e-Cigarette/Vaping Use: Never Used Second Hand Smoke Exposure: No service: No Current occupational status: retired Cognitive needs: No Hearing needs: No Vision needs: No Review of Systems Const Denies weakness ENT Denies dizziness Card Denies chest pain, Denies chest pain with activity, Denies syncope, Denies rapid heart rate, Denies pedal edema, Denies edema, Denies leg edema, Denies lightheadedness, Denies palpitations, Denies dyspnea, Denies dyspnea on exertion and Denies orthopnea Resp Denies cough, Denies dyspnea and Denies dyspnea on exertion GI Denies hematochezia and Denies change in stool character Musc Denies abnormal gait, Denies muscle cramps, Denies muscle weakness, Denies numbness, Denies radiating pain into limb and Denies tingling Neuro Denies abnormal gait, Denies dizziness, Denies syncope, Denies numbness, Denies tingling and Denies weakness Endo Denies palpitations Physical Exam Vital Signs: Last Vital Signs Pulse 53 02/26/24 13:19 BP 120/60 02/26/24 13:19 Pulse Ox 98 02/26/24 13:19 Oxygen Delivery Method Room Air 02/26/24 13:19 BMI result Body Mass Index 24.2 Const General: comfortable and no acute distress Orientation/consciousness: patient oriented x3 HEENT Other: Unremarkable Head: Yes normal to inspection Neck Neck: Yes normal visual inspection Chest Chest palpation & inspection: normal inspection of the chest Resp Auscultation: clear to auscultation bilaterally Cardio Palpation: normal PMI Heart sounds: S1 normal heart sound present, S2 normal heart sound present, no gallops, no murmurs and no rubs GI Palpation (GI): Soft to palpation Back/Spine/Pelvis Other: unremarkable Skin General skin exam: no rashes or lesions noted Neuro General: patient oriented x3 Extrem General: Yes normal to inspection Psych Mental Status: mental status grossly normal Office Procedures EKG Details: EKG with sinus bradycardia at 53/Min; right atrial enlargement; minimal criteria for LVH; all repolarization type changes; [place] [id number], Complete Assessment & Plan Assessment & Plan (1) Orthostatic hypotension: Code(s): I95.1 - Orthostatic hypotension Category: Medical Plan Based on echocardiogram from [place], LVEF in the 60s; no wall motion abnormalities; unremarkable RV; severe right atrial enlargement. Left atrium described to be normal; mild mitral regurgitation. Based on the tilt-table test, thought to have orthostatic hypotension. Overall, main recommendation is still to hydrate himself as much possible. He seems to be mostly doing fine. He will contact us with ongoing concerns. Coding Level of Care Code Est Pt Level 3 (47197) Diagnoses Orthostatic hypotension I95.1 CPT Codes EKG - CPT: 58619-[id number], Complete ([id number])
== END 2024-02-26 13:37 | disposition home or self-care (01) ==
PROVIDERS: PCP Family Medicine; Visit Provider Internal Medicine
DX: I95.1 Orthostatic hypotension (principal)
CPT/HCPCS: 93010; 99213

== ENCOUNTER → 2024-02-26 13:17 | Outpatient (BNVA) | payer MEDICARE, SELFPAY | PROVIDERS: PCP Family Medicine; Visit Provider Internal Medicine | DX: I95.1 Orthostatic hypotension (principal) | CPT/HCPCS: 93005; 99212 ==

== ENCOUNTER 2024-03-22 06:05 | Outpatient (REF) | payer MEDICARE, SELFPAY ==
[2024-03-22 06:25] LABS: MANUAL DIFF FLAG NO
[2024-03-22 07:42] LABS: Basophils Percent Auto 0.9 % (0-2); Eosinophils Absolute Auto 0.2 X10*3/uL (0.0-0.4); Eosinophils Percent Auto 4.6 % (0-4); Hematocrit 39.9 % (42.0-52.0); Hemoglobin 14.1 g/dl (14.0-18.0); Imm Gran Abs Auto 0.01 X10*3/uL (0.00-0.03); Imm Gran Pct Auto 0.3 % (0.0-0.4); Lymphocytes Absolute Auto 1.4 X10*3/uL (1.2-4.9); Lymphocytes Percent Auto 41.3 % (20-40); Mean Corpuscular HGB Conc 35.3 g/dl (31.0-36.0); Mean Corpuscular Hemoglobin 34.7 pg (27.0-33.0); Mean Corpuscular Volume 98.3 fL (80.0-98.0); Mean Platelet Volume 9.5 fL (9.4-12.4); Monocytes Absolute Auto 0.5 X10*3/uL (0.1-1.2); Monocytes Percent Auto 14.6 % (2-11); Neutrophils Absolute Auto 1.3 x10*3/uL (2.0-8.3); Neutrophils Percent Auto 38.3 % (45-73); Platelet Count 193 X10*3/uL (160-400); Red Blood Count 4.06 X10*6/uL (4.60-5.80); Red Cell Distribution Width 12.2 % (11.0-16.0); White Blood Count 3.3 X10*3/uL (4.8-10.8)
[2024-03-22 08:11] LABS: Alanine Aminotransferase 32 U/L (0-40); Albumin Level 4.2 g/dL (3.5-5.0); Alkaline Phosphatase 65 U/L (39-117); Anion Gap 12 (12-20); Aspartate Amino Transferase 33 U/L (5-37); Bilirubin Total 0.7 mg/dL (0.0-1.0); Blood Urea Nitrogen 26 mg/dL (9-16); Calcium 9.9 mg/dL (8.4-10.2); Carbon Dioxide 29 mmol/L (22-29); Chloride 103 mmol/L (96-108); Cholesterol 243 mg/dL (<200); Estimated Glomerular Filt Rate > 60; Glucose Fasting 84 mg/dL (60-99); HDL Cholesterol 79 mg/dL (>40); LDL Cholesterol Calculated 149 mg/dL (<100); Potassium 4.5 mmol/L (3.3-5.1); Sodium 139 mmol/L (135-145); Total Protein 6.6 g/dL (6.5-8.0); Triglycerides 75 mg/dL (<150)
[2024-03-22 08:18] LABS: Appearance Urine Clear; Color Urine Yellow; Glucose Urine UA Negative (Negative); Leukocyte Esterase Urine Negative (Negative); Nitrite Urine Negative (Negative); Urine Blood Negative (Negative); Urine Ketones Negative (Negative); Urine Protein Negative (Neg-Trace)
[2024-03-22 08:22] LABS: Free T4 (Free Thyroxine) 1.03 ng/dL (0.71-1.85)
[2024-03-22 09:00] LABS: Creatinine Urine 58.75 mg/dL; Microalbumin Urine < 5.0 mg/L
[2024-03-23 08:28] LABS: Triiodothyronine T3 Total 97 ng/dL (76-181)
== END 2024-03-22 06:06 | disposition home or self-care (01) ==
LOC: HO.LAB 06:05
PROVIDERS: PCP Family Medicine; Visit Provider Family Medicine
DX: Z00.00 Encounter for general adult medical examination without abnormal findings (principal); I10 Essential (primary) hypertension; E03.9 Hypothyroidism, unspecified; Z12.5 Encounter for screening for malignant neoplasm of prostate
CPT/HCPCS: 36415; 80053; 80061; 81003; 82570; 84153; 84439; 84443; 84480; 85025

== ENCOUNTER 2024-04-01 13:30 | Outpatient (REF) | payer MEDICARE, SELFPAY ==
--- NOTE | ~2024-04-01 | XR_ITS ---
EXAMINATION: XR KNEE, LEFT CLINICAL INFORMATION: Pain. COMPARISON: None available. TECHNIQUE: 2 views of the left knee and 1 AP standing view of both knees. FINDINGS: No acute fracture or subluxation. Mild joint space narrowing of the medial compartment of both knees on the standing view and patellofemoral compartment of the left knee on the lateral view. No osseous erosions. Small to moderate joint effusion in the left knee with associated soft tissue swelling along the anterior compartment of the left knee. Scattered vascular calcifications. XR/XR knee LT 3V IMPRESSION: 1. No acute fracture or subluxation. 2. Mild degenerative osteoarthritis of the medial and patellofemoral compartments of the left knee. 3. Small to moderate joint effusion in the left knee with indeterminate soft tissue thickening along the anterior compartment, recommend correlation with physical examination.
== END 2024-04-01 13:31 | disposition home or self-care (01) ==
LOC: HO.HOSX 13:30
PROVIDERS: Visit Provider Orthopaedic Surgery
DX: M23.92 Unspecified internal derangement of left knee (principal)
CPT/HCPCS: 73562; 99212

== ENCOUNTER 2024-04-01 13:33 | Outpatient (AMB) | payer MEDICARE, SELFPAY ==
--- NOTE | 2024-04-01 13:49 | A.OFFVIS_ITS ---
Vital Signs 04/01/24 13:52 Height 5 ft 7 in Weight 155 lb BMI 24.3 Intake Visit Reasons: Newprob-Left knee pain Intake Note: Srini is a 68 year old male who presents today for a new problem visit with complaints of left knee pain. Patient reports his pain has been on and off for about 3 months. He express his symptoms improve when he keeps moving around, if he stays sitting or standing his knee feels like it tightens and symptoms worsen. History of bilateral cortisone with mild relief. He has a history of a gel injection in his left knee done about 6 or 7 years ago and in his right knee about 2 years ago. He completed PT for his hips 3 weeks ago and thinks this may have twisted his knee. Allergies No Known Allergies Allergy (Verified 04/01/24 13:59) HPI HPI Newprob-Left knee pain: Details: Srini is a 68 year old male who presents today for a new problem visit with complaints of left knee pain. Patient reports his pain has been on and off for about 3 months. He express his symptoms improve when he keeps moving around, if he stays sitting or standing his knee feels like it tightens and symptoms worsen. History of bilateral cortisone with mild relief. He has a history of a gel injection in his left knee done about 6 or 7 years ago and in his right knee about 2 years ago. He completed PT for his hips 3 weeks ago and thinks this may have twisted his knee. [facility] Medical History Hypothyroidism Surgical History Status post Mohs surgery Hx of biopsy Family History Maternal Grandfather Diabetes Hypertension Maternal Grandmother Hypertension Diabetes Social History Housing: House Alcohol intake: never Patient Tobacco Use Status: Never used Tobacco e-Cigarette/Vaping Use: Never Used Second Hand Smoke Exposure: No service: No Current occupational status: retired Cognitive needs: No Hearing needs: No Vision needs: No Physical Exam Vital Signs: BMI result Body Mass Index 24.3 Extrem Other: + medial steinmen's and ttp medial joint line left knee Assessment & Plan Assessment & Plan (1) Internal derangement of left knee: Code(s): M23.92 - Unspecified internal derangement of left knee Category: Medical Plan: Internal derangement left knee with signs and symptoms left medial meniscus tear. He has not responded to conservative management and I recommend MRI to assess. Orders: Orders MR knee LT wo con 04/01/24 M23.92 - Unspecified internal derangement of left knee XR knee LT 3V 04/01/24 M25.562 - Pain in left knee Coding Level of Care Code Est Pt Level 4 (12010) Diagnoses Internal derangement of left knee M23.92
[2024-04-01 13:52] VITALS: BMI 24.3
== END 2024-04-01 14:20 | disposition home or self-care (01) ==
LOC: HO.HOS 13:33
PROVIDERS: PCP Family Medicine; Visit Provider Orthopaedic Surgery
DX: M23.92 Unspecified internal derangement of left knee (principal)
CPT/HCPCS: 99214

== ENCOUNTER 2024-04-08 11:47 | Outpatient (AMB) | payer MEDICARE, SELFPAY ==
[2024-04-08 11:51] VITALS: BP 120/62; PULSE 52; O2SAT 98; BMI 24.5
--- NOTE | 2024-04-08 11:51 | MHC.PC.OV ---
Vital Signs 04/08/24 11:51 Height 5 ft 7 in Weight 156 lb 8 oz BMI 24.5 BP 120/62 Blood Pressure Location Lt brachial Position Sitting Pulse 52 Pulse Source Pulse Oximeter Pulse Oximetry (%) 98 Oxygen Delivery Method Room Air Intake Visit Reasons: Extended exam with f/u labs and health maint. Intake Note: Patient is here for extended exam and follow up on labs, and is concerned about pain from the waist down for months. Allergies No Known Allergies Allergy (Verified 04/08/24 11:56) Medication List - Last Reconciled 04/08/24 by Miguel Obrien MD electrolytes-dextrose 5 mL PO Q15M PRN glucosamine HCl 1,500 mg PO DAILY levothyroxine 75 mcg PO DAILY 90 days multivitamin (Multiple Vitamins tablet) 1 tab PO DAILY omega 7-ohj-prz-fish oil 60-90-500 mg (Fish Oil) 1 cap PO DAILY Tobacco use date assessed: 12/04/23 Fall risk assessment: No Falls in past year Last assessed Fall Risk: 04/08/24 Dental Screening Dental Screen Date: 12/04/23 HPI Extended exam with f/u labs and health maint. HPI Details 68 y/o male presents for an extended exam with f/u labs and health maintenance. Labs were drawn 03/22/24. Reviewed labs with pt. Mild anemia. Triglycerides 75. TC 243. LDL 149. HDL 79. TSH 2.10 uIU/mL. He is on levothyroxine 75mcg daily. Pt reports L knee pain. [facility] Medical History Hypothyroidism Surgical History Status post Mohs surgery Hx of biopsy Family History Maternal Grandfather Diabetes Hypertension Maternal Grandmother Hypertension Diabetes Social History Housing: House Alcohol intake: never Patient Tobacco Use Status: Never used Tobacco e-Cigarette/Vaping Use: Never Used Second Hand Smoke Exposure: No service: No Current occupational status: retired Cognitive needs: No Hearing needs: No Vision needs: No Questionnaire PHQ-9 Over the last 2 weeks, how often have you been bothered by any of the following problems? 1. Little interest or pleasure in doing things: not at all 2. Feeling down, depressed, or hopeless: not at all 3. Trouble falling or staying asleep, or sleeping too much: not at all 4. Feeling tired or having little energy: not at all 5. Poor appetite or overeating: not at all 6. Feeling bad about yourself - or that you are a failure or have let yourself or your family down: not at all 7. Trouble concentrating on things, such as reading the newspaper or watching television: not at all 8. Moving or speaking so slowly that other people could have noticed. Or the opposite - being so fidgety or restless that you have been moving around a lot more than usual: not at all 9. Thoughts that you would be better off or of hurting yourself in some way: not at all Total score: 0 Depression Screening Interpretation: Negative Depression Screening Done: Yes 74293 - PHQ-9 Billing: Yes Source: Developed by Drs. Rodríguez Carson, Chikis Loja, Marck Rae and colleagues, with an educational michel from [employer]. Thrive Questionnaire Date Thrive assessed: 04/08/24 I am a: Patient What is your living situation today?: I have a steady place to live Within the past 12 months, did the food you bought not last and you didn't have the money to get more?: Never true Within the past 12 months, did you worry whether your food would run out before you got money to buy more?: Never true Do you have trouble paying for medicines?: No Do you have trouble getting transportation to medical appointments?: No Do you have trouble paying your heating and electricity bill?: No Do you have trouble taking care of your child, family member or friend?: No Do you have trouble with day-to-day activities such as bathing, preparing meals, shopping, managing finances, etc.?: No Are you currently unemployed and looking for a job?: No Are you interested in more education?: No THRIVE Score: 0 WILIAM-7 AMB Questionnaire WILIAM-7 Date WILIAM - 7 assessed: 04/08/24 Feeling nervous, anxious, or on edge: 0 = Not at all Not being able to stop or control worryin = Not at all Worrying too much about different things: 0 = Not at all Trouble relaxin = Not at all Being so restless that it is hard to sit still: 0 = Not at all Becoming easily annoyed or irritable: 0 = Not at all Feeling afraid as if something awful might happen: 0 = Not at all Total WILIAM-7 score (0-4 normal; 5-9 mild; 10-14 moderate; 15-21 severe): 0 Source: Developed by Drs. Rodríguez Carson, Chikis Loja, Marck Rae and colleagues, with an educational michel from [employer]. WILIAM-7 Assessment Billing WILIAM-7 Assessment Tool: WILIAM-7 Assessment 85298 Review of Systems Const Denies chills, Denies fatigue, Denies fever(s), Denies headache(s) and Denies weakness Eyes Denies change in vision ENT Denies dizziness, Denies headache(s), Denies hearing loss, Denies nasal congestion, Denies sinus pain, Denies sinus pressure and Denies sore throat Card Denies chest pain, Denies lightheadedness, Denies dyspnea and Denies other (palpitations) Resp Denies cough, Denies dyspnea and Denies wheezing GI Denies abdominal pain, Denies melena, Denies hematochezia, Denies change in bowel habits, Denies dyspepsia and Denies nausea Denies hematuria and Denies dysuria Musc Denies abnormal gait, Denies myalgias, Denies arthralgias, Denies numbness and Denies tingling Skin/Breast Denies rash, Denies unusual bruising and Denies wounds Neuro Denies abnormal gait, Denies dizziness, Denies headache(s), Denies memory loss, Denies numbness, Denies Sensory deficit (Neuro), Denies tingling and Denies weakness Psych Denies anxiety, Denies depression and Denies memory loss Endo Denies cold intolerance, Denies fatigue, Denies heat intolerance, Denies polydipsia and Denies polyuria Hima/Lymph Denies easy bleeding and Denies easy bruising Aller/Immun Denies wheezing Physical exam (Primary Care) Vital Signs: Last Vital Signs Pulse 52 04/08/24 11:51 BP 120/62 04/08/24 11:51 Pulse Ox 98 04/08/24 11:51 Oxygen Delivery Method Room Air 04/08/24 11:51 BMI result Body Mass Index 24.5 Tobacco/Smoking Status: Tobacco use Status Tobacco use date assessed 12/04/23 04/08/24 11:51 Patient Tobacco Use Status Never used Tobacco 04/08/24 11:51 e-Cigarette/Vaping Use Never Used 04/08/24 11:51 PHQ-9: PHQ-9 Score PHQ-9: Total score 0 04/08/24 12:06 Depression Screening Interpretation: Negative Thrive Assessment: Date of Thrive Assessment Date Thrive assessed 04/08/24 04/08/24 12:03 Const General: no acute distress, well developed, alert and awake Nutritional Appearance: well nourished Orientation/consciousness: patient oriented x3 HENMT Head: Yes normocephalic and Yes atraumatic Ears: hearing grossly normal bilaterally and TM's normal bilaterally General nose exam: Normal external nose present and Normal nares present Mouth: Normal oral and palatal mucosa present and moist mucous membranes Teeth and gingiva: dentition normal Throat: Yes posterior oropharynx normal Eyes General: appearance normal, both eyes and all related structures Pupils: Equal, round and reactive pupils present and Pupil accommodation reflex normal EOM: EOMs intact bilaterally Neck Neck: Yes normal visual inspection, Yes no lymphadenopathy and Yes trachea midline Thyroid: Thyroid normal Carotids: no bruits Lymphatic: no lymphadenopathy noted Chest Chest palpation & inspection: normal inspection of the chest Resp Effort & Inspection: normal respiratory effort Auscultation: clear to auscultation bilaterally Cardio Rate: regular rate Rhythm: regular rhythm Heart sounds: S1 normal heart sound present, S2 normal heart sound present, no gallops, no murmurs and no rubs Bruits: no abdominal aortic bruits and no carotid bruits GI Palpation (GI): No Abdominal aortic bruit present, Soft to palpation, nontender, No hepatosplenomegaly present and No Rebound tenderness present Auscultation: normal bowel sounds General: Yes no CVA tenderness Back/Spine/Pelvis Back: no CVA tenderness Cervical Spine: cervical ROM normal and No Cervical spine tenderness Thoracic/Lumbar Spine: thoraco-lumbar ROM normal, No pain with thoraco-lumbar ROM, No thoracic spinal tenderness and No lumbar spinal tenderness Skin Lesions: no lesions Rashes: no rashes Trauma: no lacerations or abrasions Wounds: no wounds Nails: normal Neuro General: patient oriented x3 Cranial nerves: Yes Equal, round and reactive pupils present Cognition (Neuro): normal cognition Gait exam (Neuro): Normal gait present Motor exam (neuro): 5/5 motor strength present throughout Sensory Exam: No Sensory deficit (Neuro) Deep tendon reflexes (DTR's): Right patellar reflex intensity grade: 2+ and Left patellar reflex intensity grade: 2+ Extrem General: Yes normal to inspection and No edema Psych Appearance: grossly normal Affect: normal affect Attitude: cooperative Thought process: Normal thought process present Assessment and Plan Assessment & Plan (1) Mild anemia: Code(s): D64.9 - Anemia, unspecified Plan: Very?mild Patient?is?concerned Will?recheck?lab?work?and?follow-up?at?next?visit (2) Left knee pain: Code(s): M25.562 - Pain in left knee Plan: Left?knee?pain?with?mild?arthritis He?is?followed?by?Ortho He?can?try?some?meloxicam Follow-up?with?ortho?as?recommended (3) Hypothyroidism: Code(s): E03.9 - Hypothyroidism, unspecified Plan: Thyroid?hormone?levels?are?within?normal?range Continue?current?medication (4) Lumbar radiculopathy, right: Code(s): M54.16 - Radiculopathy, lumbar region Plan: Lumbar?radiculopathy?with?some?radiation?tingling?sensation?down?right?leg He?knows?this?is?more?of?a?nuisance?than?significant?pain?or?discomfort If?worsens?we?could?consider?some?gabapentin He?has?an?MRI?scheduled?with?ortho As?above,?trialing?meloxicam (5) Elevated LDL cholesterol level: Code(s): E78.00 - Pure hypercholesterolemia, unspecified Plan: Elevated?LDL?and?HDL Patient?has?been?taking?fish?oil?for?a?long?time He?can?try?switching?to?flaxseed?oil?or?decreasing?the?amount?of?fish?oil?he?is?taking We?can?recheck?had?next?lab?draw (6) Screening for colon cancer: Code(s): Z12.11 - Encounter for screening for malignant neoplasm of colon Plan: Patient's?last?colonoscopy?was?in?[place]?and?he?was?told?he?does?not?have?to?follow-up?so?often - was?being?followed?Q?3?years?but?most?recent?colonoscopy?was?excellent He?does?have?a?strong?family?history?of?colon?cancer-grandfather?and?father Will?get?a?Cologuard?this?year?as?it?has?been?3?years?since?his?last?screening Will?discuss?referral?to?gastroenterology?subsequently?for?additional?screening?in?the?future (7) Screening for prostate cancer: Code(s): Z12.5 - Encounter for screening for malignant neoplasm of prostate Plan: PSA?was?within?normal?range Continue?annual?screening (8) Adult general medical exam: Code(s): Z00.00 - Encounter for general adult medical examination without abnormal findings Plan: 68-year-old?male?presents?for?an?extended?exam Continue?healthy?diet?with?active?lifestyle?and?plenty?of?exercise Orders: Orders Complete Blood Count Auto Diff Today D64.9 - Anemia, unspecified, Z00.00 - Encounter for general adult medical examination without abnormal findings Basic Metabolic Panel Today D64.9 - Anemia, unspecified, Z00.00 - Encounter for general adult medical examination without abnormal findings IRON PROFILE Today D64.9 - Anemia, unspecified Vitamin B12 and Folate Today D64.9 - Anemia, unspecified, E53.8 - Deficiency of other specified B group vitamins Reticulocyte Count Today D64.9 - Anemia, unspecified Lipid Panel Today E78.00 - Pure hypercholesterolemia, unspecified, Z00.00 - Encounter for general adult medical examination without abnormal findings Medications: New meloxicam 15 mg PO DAILY 30 days 30 tabs 2RF Coding Level of Care Code Est Pt Level 4 (74750) Diagnoses Mild anemia D64.9 Left knee pain M25.562 Hypothyroidism E03.9 Lumbar radiculopathy, right M54.16 Elevated LDL cholesterol level E78.00 Screening for colon cancer Z12.11 Screening for prostate cancer Z12.5 Adult general medical exam Z00.00 Additional Codes WILIAM-7 Assessment Billing - WILIAM-7 Assessment Tool: WILIAM-7 Assessment [id number] ([id number])
== END 2024-04-08 12:48 | disposition home or self-care (01) ==
PROVIDERS: PCP Family Medicine; Visit Provider Family Medicine
DX: Z00.00 Encounter for general adult medical examination without abnormal findings (principal); D64.9 Anemia, unspecified; M25.562 Pain in left knee; E03.9 Hypothyroidism, unspecified; M54.16 Radiculopathy, lumbar region; E78.00 Pure hypercholesterolemia, unspecified; Z12.11 Encounter for screening for malignant neoplasm of colon; Z12.5 Encounter for screening for malignant neoplasm of prostate
CPT/HCPCS: 99213; 99397

== ENCOUNTER 2024-05-10 18:00 | Outpatient (REF) | payer MEDICARE, SELFPAY ==
--- NOTE | ~2024-05-10 | MR_ITS ---
EXAMINATION: MR KNEE WITHOUT CONTRAST, LEFT CLINICAL INFORMATION: Unspecified internal derangement of the knee. Patient reports knee pain. COMPARISON: X-ray 04/01/2024 TECHNIQUE: MRI of the knee without contrast was performed using routine sequences on a high-field scanner. FINDINGS: MENISCI: Medial Meniscus: Horizontal signal in the medial aspect of the posterior horn and the posterior one third portion of the body. This contacts the undersurface. Findings suggest degeneration, with possible undersurface tearing. Lateral Meniscus: Intact LIGAMENTS: Cruciate: Intact Collateral: Intact Extensor mechanism: The axial sequence only images the distal most aspect of the quadriceps tendon. As seen on the sagittal sequence, there is increased T2 signal and slight thickening of the central/lateral aspect of the tendon suggesting tendinosis, with possible small intrasubstance tear. Mild bony prominence of the inferior pole of the patella.Mild tendinosis in the proximal patellar tendon. ARTICULAR CARTILAGE/BONE: Patellofemoral Compartment: Small marginal osteophytes. No significant chondral loss Medial Compartment: No significant chondral loss Lateral Compartment: No significant chondral loss. No fracture. No aggressive marrow replacing lesion. JOINT FLUID AND BURSAE: Small effusion. The synovium appears borderline prominent, from possible synovitis. No significant Osorio's cyst. MR/MR knee LT wo con IMPRESSION: 1. Degeneration with possible undersurface tear in the medial aspect of the posterior horn and the posterior portion of the body. 2. Mild distal quadriceps tendinosis, with possible small intrasubstance tear. 3. Mild proximal patellar tendinosis. 4. Mild patellofemoral arthritis. 5. Small effusion. Possible synovitis.
== END 2024-05-10 18:01 | disposition home or self-care (01) ==
LOC: HO.MRI 18:00
PROVIDERS: PCP Family Medicine; Visit Provider Orthopaedic Surgery
DX: M23.92 Unspecified internal derangement of left knee (principal)
CPT/HCPCS: 73721

== ENCOUNTER 2024-05-27 13:34 | Outpatient (AMB) | payer MEDICARE, SELFPAY ==
--- NOTE | 2024-05-27 13:34 | MHC.OFFVIS ---
Intake Visit Reasons: OV - Left Knee MRI Review Intake Note: Srini is a 68 year old male who presents today for a Left Knee MRI review. MR/MR knee LT wo con IMPRESSION: 1. Degeneration with possible undersurface tear in the medial aspect of the posterior horn and the posterior portion of the body. 2. Mild distal quadriceps tendinosis, with possible small intrasubstance tear. 3. Mild proximal patellar tendinosis. 4. Mild patellofemoral arthritis. 5. Small effusion. Possible synovitis. Allergies No Known Allergies Allergy (Verified 04/08/24 11:56) HPI HPI OV - Left Knee MRI Review: Details: Srini is a 68 year old male who presents today for a Left Knee MRI review. He bikes and runs and is occasionally sore. PFSH Medical History Hypothyroidism Surgical History Status post Mohs surgery Hx of biopsy Family History Maternal Grandfather Diabetes Hypertension Maternal Grandmother Hypertension Diabetes Social History Housing: House Alcohol intake: never Patient Tobacco Use Status: Never used Tobacco e-Cigarette/Vaping Use: Never Used Second Hand Smoke Exposure: No service: No Current occupational status: retired Cognitive needs: No Hearing needs: No Vision needs: No Physical Exam Extrem Other: full ROM neg steinmen's no effusion mild infrapatellar ttp Results Reviewed Results Reviewed: I personally reviewed the MR images. 1. Degeneration with possible undersurface tear in the medial aspect of the posterior horn and the posterior portion of the body. 2. Mild distal quadriceps tendinosis, with possible small intrasubstance tear. 3. Mild proximal patellar tendinosis. 4. Mild patellofemoral arthritis. 5. Small effusion. Possible synovitis. Assessment & Plan Assessment & Plan (1) Internal derangement of left knee: Code(s): M23.92 - Unspecified internal derangement of left knee Category: Medical Plan: Minimal symptoms and an unimpressive MRI. Continue activity as tolerated. Coding Level of Care Code Est Pt Level 3 (34276) Diagnoses Internal derangement of left knee M23.92
== END 2024-05-27 14:04 | disposition home or self-care (01) ==
PROVIDERS: PCP Family Medicine; Visit Provider Orthopaedic Surgery
DX: M23.92 Unspecified internal derangement of left knee (principal)
CPT/HCPCS: 99213

== ENCOUNTER → 2024-05-27 13:34 | Outpatient (BNVA) | payer MEDICARE, SELFPAY | PROVIDERS: PCP Family Medicine; Visit Provider Orthopaedic Surgery | DX: M23.92 Unspecified internal derangement of left knee (principal) | CPT/HCPCS: 99212 ==

== ENCOUNTER 2024-06-03 06:30 | Outpatient (REF) | payer MEDICARE, SELFPAY ==
[2024-06-03 06:46] LABS: MANUAL DIFF FLAG NO
[2024-06-03 06:59] LABS: Basophils Percent Auto 0.8 % (0-2); Eosinophils Absolute Auto 0.1 X10*3/uL (0.0-0.4); Eosinophils Percent Auto 3.6 % (0-4); Hematocrit 39.4 % (42.0-52.0); Hemoglobin 13.9 g/dl (14.0-18.0); Imm Gran Abs Auto 0.01 X10*3/uL (0.00-0.03); Imm Gran Pct Auto 0.3 % (0.0-0.4); Immature Retic Fraction 9.3 % (2.3-13.4); Lymphocytes Absolute Auto 1.6 X10*3/uL (1.2-4.9); Mean Corpuscular HGB Conc 35.3 g/dl (31.0-36.0); Mean Corpuscular Hemoglobin 34.8 pg (27.0-33.0); Mean Corpuscular Volume 98.5 fL (80.0-98.0); Mean Platelet Volume 9.4 fL (9.4-12.4); Monocytes Absolute Auto 0.5 X10*3/uL (0.1-1.2); Monocytes Percent Auto 12.8 % (2-11); Neutrophils Absolute Auto 1.7 x10*3/uL (2.0-8.3); Neutrophils Percent Auto 42.5 % (45-73); Platelet Count 151 X10*3/uL (160-400); Red Cell Distribution Width 12.2 % (11.0-16.0); Retic HGB Equivalent 38.9 pg (30.0-35.0); Reticulocyte Percent 1.2 % (0.5-1.8); Reticulocytes Absolute 0.048 X10*6/uL (0.026-0.095); White Blood Count 3.9 X10*3/uL (4.8-10.8)
[2024-06-03 07:14] LABS: Anion Gap 12 (12-20); Blood Urea Nitrogen 32 mg/dL (9-16); Carbon Dioxide 29 mmol/L (22-29); Chloride 104 mmol/L (96-108); Cholesterol 247 mg/dL (<200); Estimated Glomerular Filt Rate > 60; Glucose Random 95 mg/dL (60-115); HDL Cholesterol 83 mg/dL (>40); Iron 171 mcg/dL (45-160); LDL Cholesterol Calculated 154 mg/dL (<100); Percent Iron Saturation 57 % (15-50); Potassium 5.4 mmol/L (3.3-5.1); Sodium 140 mmol/L (135-145); Total Iron Binding Capacity 300 mcg/dL (228-428); Triglycerides 53 mg/dL (<150); Unsaturated Iron Binding 129 ug/dL
[2024-06-03 07:48] LABS: Folate 12.4 ng/mL (> or = 4.0); Vitamin B12 1041 pg/mL (200-900)
== END 2024-06-03 06:31 | disposition home or self-care (01) ==
LOC: HO.LAB 06:30
PROVIDERS: PCP Family Medicine; Visit Provider Family Medicine
DX: Z00.00 Encounter for general adult medical examination without abnormal findings (principal); D64.9 Anemia, unspecified; E53.8 Deficiency of other specified B group vitamins; E78.00 Pure hypercholesterolemia, unspecified
CPT/HCPCS: 36415; 80048; 80061; 82607; 82746; 83540; 85025; 85045

== ENCOUNTER 2024-06-14 14:46 | Outpatient (AMB) | payer MEDICARE, SELFPAY ==
--- NOTE | 2024-06-14 14:54 | A.OFFPC_ITS ---
Vital Signs 06/14/24 14:57 Height 5 ft 7 in Weight 158 lb 8 oz BMI 24.8 BP 120/60 Blood Pressure Location Rt brachial Position Sitting Respiration 12 Pulse 48 L Pulse Source Pulse Oximeter Temp 96.8 F Temp Source Tympanic Pulse Oximetry (%) 96 Oxygen Delivery Method Room Air Intake Visit Reasons: f/u mild anemia Intake Note: f/u for anemia Allergies No Known Allergies Allergy (Verified 06/14/24 14:56) Medication List - Last Reconciled 06/14/24 by Miguel Obrien MD electrolytes-dextrose 5 mL PO Q15M PRN glucosamine HCl 1,500 mg PO DAILY levothyroxine 75 mcg PO DAILY 90 days meloxicam 15 mg PO DAILY 30 days multivitamin (Multiple Vitamins tablet) 1 tab PO DAILY omega 5-yux-ajr-fish oil 60-90-500 mg (Fish Oil) 1 cap PO DAILY Tobacco use date assessed: 12/04/23 Dental Screening Dental Screen Date: 12/04/23 HPI f/u mild anemia HPI Details 68 y/o male presents to f/u mild anemia and hyperlipidemia. Labs drawn 06/03/24. Reviewed labs with pt. Ongoing mild anemia, slightly worsened. MCH high at 34.8 pg. Hct low at 39.4. Hgb mildly low at 13.9. Potassium level mildly high at 5.4 mmol/L. Plt count mildly low at 151. WBC low at 3.9. RBC 4.00. TC 247. LDL 154. HDL 83. Vitamin B12 1041. HPI Comments History of Present Illness Details Documentation assistance for Miguel Obrien MD, was provided by Yvon Maurice, Orthopaedic General on 06/14/2024 at 3:02 PM EST. I, Dr. Obrien, have read, observed, and verified documentation. [facility] Medical History Hypothyroidism Surgical History Status post Mohs surgery Hx of biopsy Family History Maternal Grandfather Diabetes Hypertension Maternal Grandmother Hypertension Diabetes Social History Housing: House Alcohol intake: never Patient Tobacco Use Status: Never used Tobacco e-Cigarette/Vaping Use: Never Used Second Hand Smoke Exposure: No service: No Current occupational status: retired Cognitive needs: No Hearing needs: No Vision needs: No Questionnaire Thrive Questionnaire Date Thrive assessed: 04/08/24 WILIAM-7 AMB Questionnaire WILIAM-7 Date WILIAM - 7 assessed: 04/08/24 Source: Developed by Drs. Rodríguez Carson, Chikis Loja, Marck Rae and colleagues, with an educational michel from [employer]. Review of Systems Const Denies chills, Denies fatigue, Denies fever(s), Denies headache(s) and Denies weakness ENT Denies dizziness and Denies headache(s) Card Denies dyspnea Resp Denies cough, Denies dyspnea, Denies wheezing and Denies other (shortness of breath) Musc Denies numbness and Denies tingling Neuro Denies dizziness, Denies headache(s), Denies numbness, Denies tingling and Denies weakness Psych Denies anxiety and Denies depression Endo Denies fatigue Aller/Immun Denies wheezing Physical exam (Primary Care) Vital Signs: Last Vital Signs Temp 96.8 F 06/14/24 14:57 Pulse 48 L 06/14/24 14:57 Resp 12 06/14/24 14:57 BP 120/60 06/14/24 14:57 Pulse Ox 96 06/14/24 14:57 Oxygen Delivery Method Room Air 06/14/24 14:57 BMI result Body Mass Index 24.8 Tobacco/Smoking Status: Tobacco use Status Tobacco use date assessed 12/04/23 06/14/24 14:55 Patient Tobacco Use Status Never used Tobacco 06/14/24 14:55 e-Cigarette/Vaping Use Never Used 06/14/24 14:55 Thrive Assessment: Date of Thrive Assessment Date Thrive assessed 04/08/24 06/14/24 14:55 Const General: well developed; No acute distress Nutritional Appearance: well nourished Orientation/consciousness: patient oriented x3 HENMT Head: Yes normocephalic and Yes atraumatic Eyes General: appearance normal, both eyes and all related structures Pupils: Equal, round and reactive pupils present EOM: EOMs intact bilaterally Resp Effort & Inspection: normal respiratory effort Auscultation: clear to auscultation bilaterally Cardio Rate: regular rate Rhythm: regular rhythm Heart sounds: S1 normal heart sound present, S2 normal heart sound present, no gallops, no murmurs and no rubs Neuro General: patient oriented x3 and gait normal Cranial nerves: Yes Equal, round and reactive pupils present Psych Affect: normal affect Assessment and Plan Assessment & Plan (1) Pancytopenia: Code(s): D61.818 - Other pancytopenia Plan: Mild?pancytopenia Unclear?cause Referred?to?Hematology-Oncology (2) Elevated LDL cholesterol level: Code(s): E78.00 - Pure hypercholesterolemia, unspecified Plan: LDL?cholesterol?is?elevated?and?higher?than?at?last?check Start?atorvastatin Will?recheck?with?next?blood?draw?in?a?few?months (3) Mild anemia: Code(s): D64.9 - Anemia, unspecified Plan: Patient?has?a?mild?macrocytic?anemia Unclear?cause?and?associated?with?mild?pancytopenia Reticulocytes?are?not?elevated Iron?levels?are?mildly?high B12?level?is?high?and?this?is?likely?from?his?multivitamin As?above,?patient?is?referred?to?Hematology-Oncology (4) Hyperkalemia: Code(s): E87.5 - Hyperkalemia Plan: Mild?elevation Will?monitor (5) Osteoarthritis: Code(s): M19.90 - Unspecified osteoarthritis, unspecified site Plan: Osteoarthritis?bilateral?knees He?is?followed?by?Ortho He?notes?he?has?had?significant?improvement?with?meloxicam?and?can?continue?this .??He?can?try?half?a?tablet?daily?and?if?this?is?enough?to?control?hi s?discomfort,?we?can?adjust?his?script. Encouraged?ongoing?physical?therapy?exercises Follow-up?with?ortho?as?needed Orders: Orders Lipid Panel Today E78.00 - Pure hypercholesterolemia, unspecified, Z00.00 - Encounter for general adult medical examination without abnormal findings Comprehensive [place]. Panel Fast Today E78.00 - Pure hypercholesterolemia, unspecified, Z00.00 - Encounter for general adult medical examination without abnormal findings Complete Blood Count Auto Diff Today D61.818 - Other pancytopenia, Z00.00 - Encounter for general adult medical examination without abnormal findings Coding Level of Care Code Est Pt Level 4 (31125) Diagnoses Pancytopenia D61.818 Elevated LDL cholesterol level E78.00 Mild anemia D64.9 Hyperkalemia E87.5 Osteoarthritis M19.90
[2024-06-14 14:57] VITALS: BP 120/60; PULSE 48; RESP 12; TEMP 36; O2SAT 96; BMI 24.8
== END 2024-06-14 15:23 | disposition home or self-care (01) ==
PROVIDERS: PCP Family Medicine; Visit Provider Family Medicine
DX: D61.818 Other pancytopenia (principal); E78.00 Pure hypercholesterolemia, unspecified; D64.9 Anemia, unspecified; E87.5 Hyperkalemia; M19.90 Unspecified osteoarthritis, unspecified site
CPT/HCPCS: 99214

== ENCOUNTER → 2024-07-30 15:00 | Outpatient (BNV) | payer MEDICARE, SELFPAY | PROVIDERS: PCP Family Medicine; Referring Provider Family Medicine; Visit Provider Internal Medicine | DX: D61.818 Other pancytopenia (principal); D64.9 Anemia, unspecified | CPT/HCPCS: 99204 ==

== ENCOUNTER 2024-09-05 14:25 | Outpatient (REF) | payer MEDICARE, SELFPAY ==
[2024-09-05 17:47] LABS: MANUAL DIFF FLAG NO
[2024-09-05 17:57] LABS: Basophils Percent Auto 0.8 % (0-2); Eosinophils Absolute Auto 0.1 X10*3/uL (0.0-0.4); Eosinophils Percent Auto 1.9 % (0-4); Hematocrit 35.6 % (42.0-52.0); Hemoglobin 12.6 g/dl (14.0-18.0); Imm Gran Abs Auto 0.01 X10*3/uL (0.00-0.03); Imm Gran Pct Auto 0.3 % (0.0-0.4); Lymphocytes Absolute Auto 1.3 X10*3/uL (1.2-4.9); Lymphocytes Percent Auto 33.9 % (20-40); Mean Corpuscular HGB Conc 35.4 g/dl (31.0-36.0); Mean Corpuscular Hemoglobin 34.1 pg (27.0-33.0); Mean Corpuscular Volume 96.5 fL (80.0-98.0); Mean Platelet Volume 9.9 fL (9.4-12.4); Monocytes Absolute Auto 0.4 X10*3/uL (0.1-1.2); Monocytes Percent Auto 10.2 % (2-11); Neutrophils Percent Auto 52.9 % (45-73); Platelet Count 144 X10*3/uL (160-400); Red Blood Count 3.69 X10*6/uL (4.60-5.80); Red Cell Distribution Width 12.3 % (11.0-16.0); White Blood Count 3.7 X10*3/uL (4.8-10.8)
[2024-09-05 18:14] LABS: Alanine Aminotransferase 66 U/L (0-40); Albumin Level 4.1 g/dL (3.5-5.0); Alkaline Phosphatase 62 U/L (39-117); Anion Gap 10 (12-20); Aspartate Amino Transferase 60 U/L (5-37); Bilirubin Total 0.8 mg/dL (0.0-1.0); Blood Urea Nitrogen 22 mg/dL (9-16); Calcium 9.4 mg/dL (8.4-10.2); Carbon Dioxide 31 mmol/L (22-29); Chloride 102 mmol/L (96-108); Cholesterol 242 mg/dL (<200); Estimated Glomerular Filt Rate > 60; Glucose Fasting 83 mg/dL (60-99); HDL Cholesterol 82 mg/dL (>40); LDL Cholesterol Calculated 147 mg/dL (<100); Potassium 4.3 mmol/L (3.3-5.1); Sodium 139 mmol/L (135-145); Total Protein 6.2 g/dL (6.5-8.0); Triglycerides 68 mg/dL (<150)
== END 2024-09-05 14:26 | disposition home or self-care (01) ==
LOC: HO.WFDLDS 14:25
PROVIDERS: Visit Provider Family Medicine
DX: Z00.00 Encounter for general adult medical examination without abnormal findings (principal); D61.818 Other pancytopenia; E78.00 Pure hypercholesterolemia, unspecified
CPT/HCPCS: 36415; 80053; 80061; 85025

== ENCOUNTER 2024-09-16 09:43 | Outpatient (REF) | payer MEDICARE, SELFPAY ==
--- NOTE | ~2024-09-16 | US_ITS ---
EXAMINATION: US ABDOMEN COMPLETE CLINICAL INFORMATION: Pancytopenia. COMPARISON: None available. TECHNIQUE: Real-time imaging of the abdominal viscera. FINDINGS: PANCREAS: Normal. ABDOMINAL AORTA: The proximal, mid, and distal segments are normal in caliber. INFERIOR VENA CAVA: Visualized portions are normal. LIVER: In the right hepatic lobe, there is a 1.1 x 0.8 x 0.7 cm well-defined hyperechoic lesion. The liver is normal in size. The liver contour is normal. Parenchymal echogenicity is normal. No focal hepatic lesion. There is no intrahepatic biliary duct dilatation seen. GALLBLADDER: Normal. The gallbladder is physiologically distended without evidence of stones, sludge, polyps, wall thickening or pericholecystic fluid. COMMON BILE DUCT: Normal in caliber measuring 0.9 cm in diameter. RIGHT KIDNEY: Normal. No hydronephrosis. No renal calculi or focal parenchymal lesions. The kidney measures 11.0 cm in maximum dimension. LEFT KIDNEY: Normal. No hydronephrosis. No renal calculi or focal parenchymal lesions. The kidney measures 10.8 cm in maximum dimension. SPLEEN: Normal. The spleen measures 10.7 cm in maximum dimension. FREE FLUID: None. US/US abdomen complete IMPRESSION: 1.1 cm hyperechoic lesion in the right hepatic lobe, likely a hemangioma. Electronically signed by: Evelina Smalls MD 09/17/2024 03:20 PM [facility]
== END 2024-09-16 09:44 | disposition home or self-care (01) ==
LOC: HO.HMGCX 09:43
PROVIDERS: PCP Family Medicine; Visit Provider Internal Medicine
DX: R94.5 Abnormal results of liver function studies (principal); M79.661 Pain in right lower leg; D61.818 Other pancytopenia; E78.5 Hyperlipidemia, unspecified
CPT/HCPCS: 76700; 99212

== ENCOUNTER 2024-09-16 14:22 | Outpatient (AMB) | payer MEDICARE, SELFPAY ==
--- NOTE | 2024-09-16 14:31 | A.OFFPC_ITS ---
Vital Signs 09/16/24 14:33 Height 5 ft 7 in Weight 159 lb 8 oz BMI 25.0 BP 100/64 Blood Pressure Location Rt brachial Position Sitting Respiration 16 Pulse 55 Pulse Source Pulse Oximeter Temp 98.6 F Temp Source Oral Pulse Oximetry (%) 98 Oxygen Delivery Method Room Air Intake Visit Reasons: f/u anemia, chronic conditions Intake Note: f/u anemia and chronic conditions Allergies No Known Allergies Allergy (Verified 09/16/24 14:32) Tobacco use date assessed: 12/04/23 Dental Screening Dental Screen Date: 12/04/23 HPI f/u anemia, chronic conditions HPI Details 69 y/o male presents to f/u pancytopenia , HLD, chronic conditions. Last seen [facility]-Onc 07/30/24 and follows up with them. Last labs drawn 09/05/24. Reviewed labs with pt. Ongoing pancyotpenia - WBC 3.7, RBC 3.69, Hgb 12.6, Hct 35.6, MCH 34.1. Plt count 144. Triglycerides 68. TC 242. LDL 147. HDL 82. Pt states he did not receive artovastatin. Has complaints of R calf pain and swelling after travel. HPI Comments History of Present Illness Details Documentation assistance for Miguel Obrien MD, was provided by Yvon Maurice, Lead Quality Control Technician on 09/16/2024 at 2:54 PM EST. I, Dr. Obrien, have read, observed, and verified documentation. PFSH Medical History Hypothyroidism Surgical History Status post Mohs surgery Hx of biopsy Family History Maternal Grandfather Diabetes Hypertension Maternal Grandmother Hypertension Diabetes Social History (Updated 07/30/24 @ 15:11 by Franklin Campoverde) Household Members: Spouse Housing: House Alcohol intake: never Patient Tobacco Use Status: Never used Tobacco e-Cigarette/Vaping Use: Never Used Second Hand Smoke Exposure: No Current occupational status: retired Sexual orientation: Straight/Heterosexual Gender identity: Male Cognitive needs: No Hearing needs: No Vision needs: No Questionnaire PHQ-9 Over the last 2 weeks, how often have you been bothered by any of the following problems? 1. Little interest or pleasure in doing things: not at all 2. Feeling down, depressed, or hopeless: not at all 3. Trouble falling or staying asleep, or sleeping too much: not at all 4. Feeling tired or having little energy: not at all 5. Poor appetite or overeating: not at all 6. Feeling bad about yourself - or that you are a failure or have let yourself or your family down: not at all 7. Trouble concentrating on things, such as reading the newspaper or watching television: not at all 8. Moving or speaking so slowly that other people could have noticed. Or the opposite - being so fidgety or restless that you have been moving around a lot more than usual: not at all 9. Thoughts that you would be better off or of hurting yourself in some way: not at all Total score: 0 Source: Developed by Drs. Rodríguez Carson, Chikis Loja, Marck Rae and colleagues, with an educational michel from [employer]. Thrive Questionnaire Date Thrive assessed: 04/08/24 I am a: Patient What is your living situation today?: I have a steady place to live Within the past 12 months, did the food you bought not last and you didn't have the money to get more?: Never true Within the past 12 months, did you worry whether your food would run out before you got money to buy more?: Never true Do you have trouble paying for medicines?: No Do you have trouble getting transportation to medical appointments?: No Do you have trouble paying your heating and electricity bill?: No Do you have trouble taking care of your child, family member or friend?: No Do you have trouble with day-to-day activities such as bathing, preparing meals, shopping, managing finances, etc.?: No Are you currently unemployed and looking for a job?: No Are you interested in more education?: No Please select the resources that you would like help with: None Currently or been in a relationship where the following occur: No concerns reported THRIVE Score: 0 AUDIT C Alcohol Use Questionnaire (AUDIT-C) 1. How often do you have a drink containing alcohol?: Never Total Score: 0 WILIAM-7 AMB Questionnaire WILIAM-7 Date WILIAM - 7 assessed: 04/08/24 Feeling nervous, anxious, or on edge: 0 = Not at all Not being able to stop or control worryin = Not at all Worrying too much about different things: 0 = Not at all Trouble relaxin = Not at all Being so restless that it is hard to sit still: 1 = Several days Becoming easily annoyed or irritable: 0 = Not at all Feeling afraid as if something awful might happen: 0 = Not at all Total WILIAM-7 score (0-4 normal; 5-9 mild; 10-14 moderate; 15-21 severe): 1 Source: Developed by Drs. Rodríguez Carson, Chikis Loja, Marck Rae and colleagues, with an educational michel from [employer]. Review of Systems Const Denies chills, Denies fatigue, Denies fever(s), Denies headache(s) and Denies weakness ENT Denies dizziness and Denies headache(s) Card Denies dyspnea Resp Denies cough, Denies dyspnea, Denies wheezing and Denies other (shortness of breath) Musc Details: R calf pain Denies numbness and Denies tingling Neuro Denies dizziness, Denies headache(s), Denies numbness, Denies tingling and Denies weakness Psych Denies anxiety and Denies depression Endo Denies fatigue Aller/Immun Denies wheezing Physical exam (Primary Care) Vital Signs: Last Vital Signs Temp 98.6 F 09/16/24 14:33 Pulse 55 09/16/24 14:33 Resp 16 09/16/24 14:33 BP 100/64 09/16/24 14:33 Pulse Ox 98 09/16/24 14:33 Oxygen Delivery Method Room Air 09/16/24 14:33 BMI result Body Mass Index 25.0 Tobacco/Smoking Status: Tobacco use Status Tobacco use date assessed 12/04/23 09/16/24 14:31 Patient Tobacco Use Status Never used Tobacco 09/16/24 14:31 e-Cigarette/Vaping Use Never Used 09/16/24 14:31 PHQ-9: PHQ-9 Score PHQ-9: Total score 0 09/16/24 14:40 Thrive Assessment: Date of Thrive Assessment Date Thrive assessed 04/08/24 09/16/24 14:31 Currently or been in a relationship where the following occur: No concerns reported Const General: well developed; No acute distress Nutritional Appearance: well nourished Orientation/consciousness: patient oriented x3 [facility] [place] Head: Yes normocephalic and Yes atraumatic Eyes General: appearance normal, both eyes and all related structures Pupils: Equal, round and reactive pupils present EOM: EOMs intact bilaterally Resp Effort & Inspection: normal respiratory effort Neuro General: patient oriented x3 and gait normal Cranial nerves: Yes Equal, round and reactive pupils present Psych Affect: normal affect Coding Level of Care Code Est Pt Level 4 (09036) Diagnoses Right calf pain M79.661 Pancytopenia D61.818 Hyperlipidemia E78.5 Hyperkalemia E87.5 Assessment & Plan Assessment & Plan (1) Right calf pain: Code(s): M79.661 - Pain in right lower leg Category: Medical Plan: Right?calf?pain?a nd?swelling?after?plane?travel?patient?has?palpable?cord?at?proximal?medial?calf . Concern?for?DVT Ultrasound?ordered?stat Will?call?patient?with?results (2) Pancytopenia: Code(s): D61.818 - Other pancytopenia Category: Medical Plan: Followed?by?Hematology-Oncology (3) Hyperlipidemia: Code(s): E78.5 - Hyperlipidemia, unspecified Category: Medical Plan: Patient?did?not?receive?atorvastatin Sent?to?pharmacy He?can?follow-up?at?subsequent?visit (4) Hyperkalemia: Code(s): E87.5 - Hyperkalemia Category: Medical Plan: This?has?resolved Orders: Orders US venous duplex LE BI Today Miguel Obrien MD M79.661 - Pain in right lower leg US abdomen complete 1 Week Maggie Moreno MD Medications: New atorvastatin 20 mg PO DAILY 90 days 90 tabs 2RF Miguel Obrien MD
[2024-09-16 14:33] VITALS: BP 100/64; PULSE 55; RESP 16; TEMP 37; O2SAT 98; BMI 25.0
== END 2024-09-16 14:53 | disposition home or self-care (01) ==
PROVIDERS: PCP Family Medicine; Visit Provider Family Medicine
DX: M79.661 Pain in right lower leg (principal); D61.818 Other pancytopenia; E78.5 Hyperlipidemia, unspecified; E87.5 Hyperkalemia

== ENCOUNTER 2024-09-17 13:15 | Outpatient (REF) | payer MEDICARE, SELFPAY ==
--- NOTE | ~2024-09-17 | US_ITS ---
EXAMINATION: US TRIPLEX LOWER EXTREMITY, RIGHT CLINICAL INFORMATION: Pain in the right lower lung COMPARISON: None available. TECHNIQUE: Color-flow triplex imaging with spectral analysis and compression Doppler were performed on the right lower extremity. FINDINGS: Respiratory variation, normal compression and augmented flow are noted throughout the right lower extremity. The visualized common femoral vein, superficial femoral vein, profunda femoral vein, popliteal vein and midcalf peroneal and posterior tibial venous segments show no evidence of deep venous thrombosis. There is occlusive thrombus in the right gastrocnemius vein as well as superficial thrombophlebitis in the proximal small saphenous vein. There is no Osorio's cyst. US/US venous duplex LE RT IMPRESSION: 1. Occlusive thrombus in the right gastrocnemius vein. 2. Superficial thrombophlebitis in the proximal small saphenous vein. The pulp tester performing the exam communicated critical preliminary results to the referring provider at 13:48 and the patient was sent to the ER for further evaluation. Electronically signed by: Evelina Smalls MD 09/17/2024 03:17 PM [facility]
== END 2024-09-17 13:16 | disposition home or self-care (01) ==
LOC: HO.US 13:15
PROVIDERS: PCP Family Medicine; Visit Provider Family Medicine
DX: M79.661 Pain in right lower leg (principal)
CPT/HCPCS: 93971

== ENCOUNTER 2024-09-17 13:53 | Emergency (ER) | payer MEDICARE, SELFPAY ==
[2024-09-17 14:26] VITALS: BP 155/65; PULSE 47; RESP 20; TEMP 37; O2SAT 99; BMI 25.1
--- NOTE | 2024-09-17 14:27 | ED.GENADULT ---
HPI - General Adult General Chief complaint: Recheck/Abnormal Lab/Rx Stated complaint: DVT R leg Time Seen by Provider: 09/17/24 18:57 Source: patient Mode of arrival: ambulatory Limitations: no limitations History of Present Illness ED Provider: Rocio Barber NP HPI narrative: patient is a 69-year-old male Who presents to the emergency department for evaluation. He reports 1 week ago he was flying to [place], had an initial 2 hours then a layover and subsequent 3-4 hour flight. Upon arriving to [place] he noticed some cramping to his right calf. Continue to on an exercise without difficulty. He had a routine appointment with his primary care doctor yesterday heel inquired about his colitis in his knees, at that time. Reported the chaffing and his current with recent flights and therefore an outpatient ultrasound was obtained. He was referred to the ED after ultrasound due to positive DVT. He denies any history of blood thinners or known coagulation disorders. Recent surgeries or otherwise prolonged immobilization aside from his pain. Chest pain, shortness of breath, difficulty breathing, dizziness, near-syncope/syncope. Related Data Home Medications ?Medication ?Instructions ?Recorded ?Confirmed multivitamin (Multiple Vitamins 1 tab PO DAILY 10/19/22 07/30/24 tablet) omega 0-saa-dnm-fish oil 60 mg-90 1 cap PO DAILY 10/19/22 07/30/24 mg-500 mg capsule (Fish Oil) electrolytes-dextrose oral solution 5 ml PO Q15M PRN prn 01/18/23 07/30/24 glucosamine HCl 1,500 mg tablet 1,500 mg PO DAILY 02/26/24 07/30/24 Previous Rx's ?Medication ?Instructions ?Recorded levothyroxine 75 mcg tablet 75 mcg PO DAILY 90 days #90 tabs 12/04/23 meloxicam 15 mg tablet 15 mg PO DAILY 30 days #30 tabs 07/05/24 atorvastatin 20 mg tablet 20 mg PO DAILY 90 days #90 tabs 09/16/24 apixaban 5 mg (74 tabs) tablets in 5 mg PO BID #74 ea 09/17/24 a dose pack (Eliquis DVT-PE Treat 30D Start) Allergies Allergy/AdvReac Type Severity Reaction Status Date / Time No Known Allergies Allergy Verified 09/17/24 15:24 Review of Systems Review of Systems: Yes all other systems are reviewed and are negative [facility] Past Medical History Attestation statement: The following information was validated with the patient. Source: old records reviewed Medical History Hypothyroidism Surgical History Status post Mohs surgery Hx of biopsy Family History Family History Maternal Grandfather Diabetes Hypertension Maternal Grandmother Hypertension Diabetes Social History Social History (Updated 07/30/24 @ 15:11 by Franklin Campoverde) Household Members: Spouse Housing: House Alcohol intake: never Patient Tobacco Use Status: Never used Tobacco e-Cigarette/Vaping Use: Never Used Second Hand Smoke Exposure: No Advance Directives: No Advance Directives Information Provided: No Current occupational status: retired Sexual orientation: Straight/Heterosexual Gender identity: Male Cognitive needs: No Hearing needs: No Vision needs: No Physical Exam ED Vital Signs: Vital Signs - 24 hr 09/17/24 14:26 09/17/24 19:10 09/17/24 19:52 Temperature 98.6 F 98.6 F 98.6 F Pulse Rate 47 L 53 53 Respiratory Rate 20 16 16 Blood Pressure 155/65 H 167/92 H 167/92 H Pulse Oximetry 99 99 99 Oxygen Delivery Method Room Air Room Air Room Air BMI result Body Mass Index 25.1 Appearance: Alert.?Oriented to person, place and time. No acute distress.?Normal affect. Eyes: Pupils equal, round and reactive to light.? ENT: Pharynx normal.?? Neck: Normal inspection.? Neck supple.?? CVS: Heart sounds normal. Normal heart rate and rhythm.? Pulses normal.?? Respiratory: No respiratory distress.? Lung sounds clear to auscultation bilaterally?? Abdomen: Soft and non-tender. Normoactive bowel sounds. No pulsatile mass.?? Skin: Skin warm and dry.? Normal skin color.? Normal skin turgor.?? Extremities: No lower extremity edema.? Positive right calf tenderness upon palpation. 2+ DP /PT pulse bilaterally.? Neuro: Moves all extremities spontaneously. Sensation intact bilaterally. CN II-XII intact. No focal neuro deficits. Ambulates with normal steady gait. Course Course Course Narrative: This is a rapid medical exam performed by Mikaela Adame NP: Additional HPI, ROS, PE not included below will be deferred to primary provider. Patient is a 69-year-old male presenting from outpatient radiology after + for DVT to RLE today. PCP unable to see patient. Plan: labs Medications Administered Discontinued Medications Generic Name Dose Route Start Last Admin Trade Name Freq PRN Reason Stop Dose Admin Apixaban 10 mg 09/17/24 19:31 09/17/24 19:35 Apixaban 5 Mg Tablet PO 09/17/24 19:32 10 mg ONCE ONE Administration Medical Decision Making Medical Decision Making [facility] Narrative: patient is a 69-year-old male presents emergency department for evaluation of right lower extremity cramping as per HPI. Outpatient ultrasound revealing an occlusive thrombus in the right gastrocnemius vein as well as superficial thrombophlebitis in the proximal small saphenous vein. Extremity is neurovascularly intact distally. He is otherwise quite well-appearing, active. Initiated on Eliquis 10 mg twice daily for 1 week followed by 5 mg life daily. He received his 1st dose in the emergency department. He has no associated chest pain, shortness of breath, tachycardia or hypoxia to suggest acute pulmonary embolism. At this time feel that he is stable for discharge home, outpatient follow-up with PCP/hematology. Strict precautions /bleeding precautions were reviewed with patient while on Eliquis, avoidance of OTC NSAIDs. Stable for discharge Differential Diagnosis Differential Diagnoses: The differential diagnosis associated with the presentation includes ( see narrative above) Admission/Observation Consideration of admission/observation: Escalation of care including admission/observation considered ( See narrative above) Lab Data [facility] Lab Attestation statement: I reviewed the patient's lab results. CBC is without leukocytosis, has a mild anemia does not meet transfusion criteria, very mild thrombocytopenia. No electrolyte derangement. No PABLO/CKD. Coags within normal range. 09/17/24 14:43 09/17/24 14:43 Labs: Lab Results 09/17/24 Range/Units 14:43 WBC 4.9 (4.8-10.8) X10*3/uL RBC 3.83 L (4.60-5.80) X10*6/uL Hgb 13.2 L (14.0-18.0) g/dl Hct 37.2 L (42.0-52.0) % MCV 97.1 (80.0-98.0) fL MCH 34.5 H (27.0-33.0) pg MCHC 35.5 (31.0-36.0) g/dl RDW 12.2 (11.0-16.0) % Plt Count 152 L (160-400) X10*3/uL MPV 9.2 L (9.4-12.4) fL Immature Gran % (Auto) 0.2 (0.0-0.4) % Neut % (Auto) 63.4 (45-73) % Lymph % (Auto) 24.7 (20-40) % Ray % (Auto) 9.1 (2-11) % Eos % (Auto) 1.8 (0-4) % Baso % (Auto) 0.8 (0-2) % Lymph # (Auto) 1.2 (1.2-4.9) X10*3/uL Ray # (Auto) 0.5 (0.1-1.2) X10*3/uL Eos # (Auto) 0.1 (0.0-0.4) X10*3/uL Baso # (Auto) 0.0 (0.0-0.2) X10*3/uL Abs Immat Gran (auto) 0.01 (0.00-0.03) X10*3/uL Absolute Neuts (auto) 3.1 (2.0-8.3) x10*3/uL Absolute Nucleated RBC 0.000 (0.0-0.012) X10*3/uL Nucleated RBC % (auto) 0.0 (0.0-0.2) /100WBC PT 11.0 (10.9-12.4) SEC INR 0.9 (0.9-1.1) APTT 30.1 (26.0-36.8) SEC Sodium 139 (135-145) mmol/L Potassium 4.2 (3.3-5.1) mmol/L Chloride 102 (96-108) mmol/L Carbon Dioxide 29 (22-29) mmol/L Anion Gap 12 (12-20) BUN 21 H (9-16) mg/dL Creatinine 0.91 (0.5-1.4) mg/dL Estim Creat Clear Calc 73.6 Estimated GFR > 60 Random Glucose 87 (60-115) mg/dL Calcium 10.0 D (8.4-10.2) mg/dL Total Bilirubin 0.8 (0.0-1.0) mg/dL AST 50 H (5-37) U/L ALT 40 (0-40) U/L Alkaline Phosphatase 63 (39-117) U/L Total Protein 6.5 (6.5-8.0) g/dL Albumin 4.3 (3.5-5.0) g/dL External Record Review External record reviewed: Outpatient record and Prior outpatient radiology US/US venous duplex LE RT IMPRESSION: 1. Occlusive thrombus in the right gastrocnemius vein. 2. Superficial thrombophlebitis in the proximal small saphenous vein. Tests considered The following testing was considered but not selected: low clinical suspicion for any acute pulmonary embolism, would defer CTA of the chest. Prescription Management I considered prescription management with: Other ( See narrative above) Discharge Plan Discharge Clinical Impression: Acute deep vein thrombosis (DVT) of right lower extremity Patient Disposition: Home, Self-Care Instructions: Deep Vein Thrombosis (ED), Blood Thinners (ED), Deep Vein Thrombosis Prevention (ED) Additional Instructions: A prescription has been sent to your pharmacy for the blood thinning medications; Eliquis. You may begin taking this tomorrow morning as you received your 1st dose in the emergency department. Take Eliquis 10 mg once in the morning and once in the evening for 7 days. Following the 1st 7 days you will begin taking 5 mg twice daily. Follow-up closely with your primary care doctor and/or resident physician in radiology. If you develop new or worsening symptoms or concerns including but not limited to worsening pain, swelling of the leg, redness, chest pain, shortness of breath, dizziness, near passing out sensation, numbness or tingling to the extremity you should seek re-evaluation. Additionally you should not take any NSAIDs while on this medication this includes ibuprofen/Motrin / Advil, Aleve / naproxen, aspirin, meloxicam while taking Eliquis. As discussed it is very important that you monitor for any signs of bleeding, you may notice that you bruise more easily while being on this medication, and most importantly if you have any type of significant injury, head trauma no matter how slight, you should seek re-evaluation as you are at an increased risk for bleeding into the brain. Prescriptions: [place] DVT-PE Treat 30D Start 5 mg (74 tabs) tablets,dose pack 5 mg PO BID Qty: 74 0RF No Action meloxicam 15 mg tablet 15 mg PO DAILY 30 Days Qty: 30 2RF levothyroxine 75 mcg tablet 75 mcg PO DAILY 90 Days Qty: 90 3RF omega 2-uww-gsx-fish oil [Fish Oil] 60-90-500 mg capsule 1 cap PO DAILY multivitamin [Multiple Vitamins] Tablet 1 tab PO DAILY electrolytes-dextrose Solution 5 ml PO Q15M PRN (Reason: prn) Rx Instructions: until vomiting and/or diarrhea resolve for no more than 4 hours duration glucosamine HCl 1,500 mg tablet 1,500 mg PO DAILY Rx Instructions: administer with a meal atorvastatin 20 mg tablet 20 mg PO DAILY 90 Days Qty: 90 2RF Referrals: Miguel Obrien MD [Primary Care Provider] - Interventions: ED Discharge Assessment Last Done: 09/17/24 19:52 Discharge Date/Time: 09/17/24 19:57 Print Language: Slovak
[2024-09-17 14:49] LABS: MANUAL DIFF FLAG NO
[2024-09-17 14:58] LABS: INTERNATIONAL NORM RATIO 0.9 (0.9-1.1)
[2024-09-17 15:01] LABS: Partial Thromboplastin Time 30.1 SEC (26.0-36.8)
[2024-09-17 15:03] LABS: Basophils Percent Auto 0.8 % (0-2); Eosinophils Absolute Auto 0.1 X10*3/uL (0.0-0.4); Eosinophils Percent Auto 1.8 % (0-4); Hematocrit 37.2 % (42.0-52.0); Hemoglobin 13.2 g/dl (14.0-18.0); Imm Gran Abs Auto 0.01 X10*3/uL (0.00-0.03); Imm Gran Pct Auto 0.2 % (0.0-0.4); Lymphocytes Absolute Auto 1.2 X10*3/uL (1.2-4.9); Lymphocytes Percent Auto 24.7 % (20-40); Mean Corpuscular HGB Conc 35.5 g/dl (31.0-36.0); Mean Corpuscular Hemoglobin 34.5 pg (27.0-33.0); Mean Corpuscular Volume 97.1 fL (80.0-98.0); Mean Platelet Volume 9.2 fL (9.4-12.4); Monocytes Absolute Auto 0.5 X10*3/uL (0.1-1.2); Monocytes Percent Auto 9.1 % (2-11); Neutrophils Absolute Auto 3.1 x10*3/uL (2.0-8.3); Neutrophils Percent Auto 63.4 % (45-73); Platelet Count 152 X10*3/uL (160-400); Red Blood Count 3.83 X10*6/uL (4.60-5.80); Red Cell Distribution Width 12.2 % (11.0-16.0); White Blood Count 4.9 X10*3/uL (4.8-10.8)
[2024-09-17 15:21] LABS: Alanine Aminotransferase 40 U/L (0-40); Albumin Level 4.3 g/dL (3.5-5.0); Alkaline Phosphatase 63 U/L (39-117); Anion Gap 12 (12-20); Bilirubin Total 0.8 mg/dL (0.0-1.0); Blood Urea Nitrogen 21 mg/dL (9-16); Carbon Dioxide 29 mmol/L (22-29); Chloride 102 mmol/L (96-108); Creatinine Clr Calc Pharmacy 73.6; Estimated Glomerular Filt Rate > 60; Glucose Random 87 mg/dL (60-115); Potassium 4.2 mmol/L (3.3-5.1); Sodium 139 mmol/L (135-145); Total Protein 6.5 g/dL (6.5-8.0)
[2024-09-17 15:32] LABS: Aspartate Amino Transferase 50 U/L (5-37)
--- NOTE | 2024-09-17 15:59 | MHC.HEMONC ---
I returned call to pt per Dr Moreno to advise him that u/s of abdomen was not concerning but I did note that pt is currently in ER with DVT/treatment. I left message on his voicemail.
[2024-09-17 19:10] VITALS: BP 167/92; PULSE 53; RESP 16; TEMP 37; O2SAT 99
[2024-09-17] MEDS: Apixaban 5 MG TABLET 10 MG PO (19:35)
[2024-09-17 19:52] VITALS: BP 167/92; PULSE 53; RESP 16; TEMP 37; O2SAT 99
== END 2024-09-17 19:57 | disposition home or self-care (01) ==
PROVIDERS: Registered Nurse Emergency; Emergency Provider Emergency Medicine; PCP Family Medicine
DX: I82.401 Acute embolism and thrombosis of unspecified deep veins of right lower extremity (principal); Z79.899 Other long term (current) drug therapy
CPT/HCPCS: 36415; 80053; 85025; 85610; 85730; 99282; 99283

== ENCOUNTER 2024-12-16 12:02 | Outpatient (REF) | payer MEDICARE, SELFPAY ==
--- NOTE | ~2024-12-16 | US_ITS ---
EXAMINATION: US TRIPLEX LOWER EXTREMITY, RIGHT CLINICAL INFORMATION: Acute embolism and thrombosis. COMPARISON: September 17, 2024 demonstrated occlusive thrombus in the right gastrocnemius vein and superficial thrombophlebitis, proximal small saphenous vein. TECHNIQUE: Color-flow triplex imaging with spectral analysis and compression Doppler were performed on the right lower extremity. FINDINGS: Respiratory variation, normal compression and augmented flow are noted throughout the right lower extremity. The visualized common femoral vein, superficial femoral vein, profunda femoral vein, popliteal vein and midcalf peroneal and posterior tibial venous segments show no evidence of deep venous thrombosis. There is no Osorio's cyst. US/US venous duplex LE RT IMPRESSION: No acute deep venous thrombosis involving the right lower extremity. Negative exam. Overall improved.. Electronically signed by: Darrel Ceja MD 12/16/2024 01:07 PM [facility]
== END 2024-12-16 12:03 | disposition home or self-care (01) ==
LOC: HO.US 12:02
PROVIDERS: PCP Family Medicine; Visit Provider Family Medicine
DX: I82.401 Acute embolism and thrombosis of unspecified deep veins of right lower extremity (principal)
CPT/HCPCS: 93971

== ENCOUNTER → 2024-12-16 12:04 | Outpatient (BNV) | payer MEDICARE, SELFPAY | PROVIDERS: PCP Family Medicine; Visit Provider Radiology Diagnostic Radiology | DX: I82.491 Acute embolism and thrombosis of other specified deep vein of right lower extremity (principal) | CPT/HCPCS: 93971 ==

== ENCOUNTER 2025-09-26 06:07 | Outpatient (REF) | payer MEDICARE, SELFPAY ==
--- OUTSIDE RECORDS SUMMARY | 2013-10-01 04:10 | XMS_ITS | Continuity of Care Document ---
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 Name Role Phone Michael Betancourt Unavailable Unavailable Procedures Procedure Date OFFICE/OUTPATIENT VISIT EST OFFICE/OUTPATIENT VISIT EST X-RAY EXAM OF HEEL Pneumati walking boot prefab Walker W/ r Shoe lifts tapered to one-wilkinson Advance Directives Directive Yes / No Effective Date File Name No Information Encounters Encounter Description Practice Location Reason(s) For Visit Diagnoses Date Provider Providers Copied on Encounter OFFICE/OUTPAT IENT VISIT EST [facility], [address], [place], [place], [id number], tel:[phone] [facility] No Information 3 Serafin Rodriguez. [address], [place], [place], [id number] . tel: [phone] OFFICE/OUTPAT IENT VISIT EST [facility], [address], [place], [place], [id number], tel:[phone] [facility] No Information 3 Serafin Rodriguez. [address], [place], [place], [id number] . tel: [phone] Family History Family Member Type Diagnosis Age At Onset No Information Payers Payer name Insurance type Covered libertarian ID Authoriza tion(s) [facility] [id number] Social History Type Description Quantity Date Captured Comments Sex Male Smoking Status No Information Chief Complaint And Reason For Visit No Information Reason For Referral Reason For Referral No Information History Of Present Illness Encounter Date Complaint History Of Prese nt Illness No Information Functional Status Date Functional Assessmen t No Information Instructions Date Instruction Additional Infor mation No Information Assessments Type Assessment Date No Information Patient Care Teams Name Effective Dates (start - stop) Status Members No Information
--- OUTSIDE RECORDS SUMMARY | 2025-09-26 06:09 | XMS_ITS | Clinical Summary ---
Author Organization [facility] Address [address] [facility] [address] [place] [id number] Phone Care Team Providers Care Rivet Maker Name Role Phone Miguel Obrien MD Primary Care Provider Allergies No known active allergies Medications levothyroxine (SYNTHROID, LEVOTHROID) 75 MCG tablet Take 75 mcg by mouth daily. 3 Active diclofenac sodium (VOLTAREN) 1 % Gel Apply 4 g topically 4 (four) times a day. 200 g 1 3 Active celecoxib (CELEBREX) 200 MG capsuleIndications :Primary osteoarthritis of right knee Take 1 capsule (200 mg total) by mouth daily. Take with food. 30 capsule 3 Active Active Problems No known active problems Social History Tobacco Use Types Packs/Day Years Used Date Smoking Tobacco: Never Smokeless Tobacco: Never Tobacco Cessation:Counseling Given: Not Answered Education Answer Date Recorded Are you interested in more education? Not on daphne e 02/18/2023 Are you concerned about learning? Not on file 02/18/2023 No 02/18/2023 No 02/18/2023 Digital Access Answer Date Recorded No 03/14/2023 No 03/14/2023 Reliable internet access at home? Not on file 03/14/2023 Device with a working camera? Not on file Sex and Gender Information Value Date Recorded Sex Assigned at Not on file Legal Sex Male 12:25 PM EDT Gender Identity Not on file Sexual Orientation Not on file Plan of Treatment Health Maintenance Due Date Last Done Comments Adult Td,Tdap Booster 1957 LIPID PANEL 1957 TSH LEVEL 1957 DEPRESSION SCREENING 1969 HEPATITIS C SCREENING 1975 COLOGUARD 2002 COLONOSCOPY 2002 COLORECTAL CANCER SCREENING 2002 FIT TEST 2002 FOBT 2002 SIGMOIDOSCOPY 2002 VIRTUAL COLONOSCOPY 2002 PNEUMOCOCCAL VACCINES (50+ y ears) (1 of 1 - PCV) 2007 ZOSTER VACCINES (1 of 2) 2007 INFLUENZA VACCINE (#1) 2025 08/28/2022 COVID-19 VACCINE (2 - 2024-2 6 season) 2025 08/28/2022 RSV VACCINE (1 - 1-dose 75+ series) 2032 SMOKING STATUS SCREENING (On ce After 26 Yrs) Completed 03/27/2023 HEPATITIS A VACCINES Aged Out No long er eligible based on patient's age to complete this topic HIB VACCINES Aged Out No longer eligi ble based on patient's age to complete this topic MENINGOCOCCAL VACCINES (ACWY) Aged Out No longer eligible based on patient's age to complete this topic MENINGOCOCCAL VACCINES (B) Aged Out N o longer eligible based on patient's age to complete this topic Medical Devices Not on file Insurance MEDICARE PART A & B [facility] MEDICARE SUPPLEMENT MEDICARE PART A & B [facility] MEDICARE SUPPLEMENT MEDICARE PART A & B MEDICARE SUPPLEMENT MEDICARE PART A & B MEDICARE SUPPLEMENT MEDICARE PART A & [place] [address] [place] [address] [place] [address] MEDICARE PART A & B [facility] MEDICARE SUPPLEMENT Care Teams Rivet Maker Relationship Specialty Start Date End Date Miguel Obrien MD PCP - General Family Medicine 01/11/23 Additional Source Comments The information contained in this document represents components of the legal health record. It is not the complete legal health record.[facility]
[2025-09-26 08:01] LABS: Alanine Aminotransferase 53 U/L (0-40); Albumin Level 4.6 g/dL (3.5-5.0); Alkaline Phosphatase 69 U/L (39-117); Anion Gap 12 (12-20); Aspartate Amino Transferase 65 U/L (5-37); Blood Urea Nitrogen 29 mg/dL (9-16); Calcium 10.2 mg/dL (8.4-10.2); Carbon Dioxide 29 mmol/L (22-29); Chloride 108 mmol/L (96-108); Cholesterol 272 mg/dL (<200); Estimated Glomerular Filt Rate > 60; HDL Cholesterol 83 mg/dL (>40); Potassium 5.5 mmol/L (3.3-5.1); Sodium 143 mmol/L (135-145); Total Protein 6.9 g/dL (6.5-8.0); Triglycerides 90 mg/dL (<150)
[2025-09-26 08:33] LABS: Folate 13.7 ng/mL (> or = 4.0); Vitamin B12 922 pg/mL (200-900)
== END 2025-09-26 06:08 | disposition home or self-care (01) ==
LOC: HO.LAB 06:07
PROVIDERS: PCP Nurse Practitioner Family; Visit Provider Nurse Practitioner Family
DX: Z00.00 Encounter for general adult medical examination without abnormal findings (principal); Z13.6 Encounter for screening for cardiovascular disorders; Z13.1 Encounter for screening for diabetes mellitus; Z13.21 Encounter for screening for nutritional disorder; Z13.29 Encounter for screening for other suspected endocrine disorder; Z12.5 Encounter for screening for malignant neoplasm of prostate
CPT/HCPCS: 36415; 80053; 80061; 82306; 82607; 82746; 83036; 84153; 84443

== ENCOUNTER 2025-09-29 10:43 | Outpatient (REF) | payer MEDICARE, SELFPAY | END 2025-09-29 10:44 | disposition home or self-care (01) | LOC: HO.LNP 10:43 | PROVIDERS: Visit Provider Nurse Practitioner Family | DX: Z00.00 Encounter for general adult medical examination without abnormal findings (principal) | CPT/HCPCS: 82043; 82570 ==

== ENCOUNTER 2025-10-06 12:23 | Outpatient (REF) | payer MEDICARE, SELFPAY ==
[2025-10-06 18:14] LABS: Baso%MD 0.8 %; Eos%MD 1.6 %; Hematocrit 40.0 % (42.0-52.0); Hemoglobin 13.8 g/dl (14.0-18.0); IG%MD 0.0 %; Lymph%MD 36.2 %; Mean Corpuscular HGB Conc 34.5 g/dl (31.0-36.0); Mean Corpuscular Hemoglobin 34.1 pg (27.0-33.0); Mean Corpuscular Volume 98.8 fL (80.0-98.0); Mono%MD 8.9 %; NRBC Abs Auto 0.000 X10*3/uL (0.0-0.012); NRBC Pct Auto 0.0 /100WBC (0.0-0.2); Neut%MD 52.5 %; Platelet Count 174 X10*3/uL (160-400); Red Blood Count 4.05 X10*6/uL (4.60-5.80); White Blood Count 3.7 X10*3/uL (4.8-10.8)
[2025-10-06 18:36] LABS: Appearance Urine Clear; Glucose Urine UA Negative (Negative); PH 5.0 (5.0-9.0); Specific Gravity - Urine 1.010 (1.005-1.025)
[2025-10-06 18:51] LABS: Atypical Lymphs Percent Manual 1 % (0-6); Band Neutrophils Percent 1 % (3-5); Basophils Percent Manual 1 % (0-2); Eosinophils Absolute Manual 0.2 X10*3/uL (0.0-0.4); Eosinophils Percent Manual 5 % (0-4); Lymphocytes Absolute Manual 1.4 X10*3/uL (1.2-4.9); Lymphocytes Percent Manual 39 % (20-40); Monocytes Absolute Manual 0.4 X10*3/uL (0.1-1.2); Monocytes Percent Manual 11 % (2-11); Neutrophils Absolute Manual 1.6 X10*3/uL (2.0-8.3); Neutrophils Percent Manual 42 % (45-73)
[2025-10-06 18:52] LABS: RBC Morphology NOTED
[2025-10-06 18:58] LABS: Alanine Aminotransferase 47 U/L (0-40); Albumin Level 4.8 g/dL (3.5-5.0); Alkaline Phosphatase 67 U/L (39-117); Anion Gap 13 (12-20); Aspartate Amino Transferase 56 U/L (5-37); Blood Urea Nitrogen 26 mg/dL (9-16); Calcium 10.2 mg/dL (8.4-10.2); Carbon Dioxide 27 mmol/L (22-29); Chloride 106 mmol/L (96-108); Estimated Glomerular Filt Rate > 60; Ferritin 81 ng/mL (20-250); Iron 109 mcg/dL (45-160); Percent Iron Saturation 36 % (15-50); Potassium 4.8 mmol/L (3.3-5.1); Sodium 141 mmol/L (135-145); Total Iron Binding Capacity 304 mcg/dL (228-428); Total Protein 7.0 g/dL (6.5-8.0); Unsaturated Iron Binding 195 ug/dL
[2025-10-07 04:39] LABS: HBS Num1 0.00 mIU/mL (0-7.99); HBc Num1 0.08 S/CO (0.00-0.79); HBsAGNum1 0.42 S/CO (0.00-0.99); HIV Num 1 0.07 S/CO (0.00-0.99); Hepatitis A Antibody IgM 0.25 Index (0-0.79); Hepatitis B Surface Antigen Negative (Negative); ~HepC Num1 0.09 S/CO (0.00-0.79); ~Hepatitis A Antibody IgM Nonreactive (Nonreactive); ~Hepatitis B Surface Antibody NONREACTIVE (Nonreactive); ~Hepatitis C Antibody Nonreactive (Nonreactive)
== END 2025-10-06 12:24 | disposition home or self-care (01) ==
LOC: HO.LAB 12:23
PROVIDERS: PCP Family Medicine; Visit Provider Nurse Practitioner Family
DX: Z00.00 Encounter for general adult medical examination without abnormal findings (principal); D61.818 Other pancytopenia; E87.5 Hyperkalemia; E78.2 Mixed hyperlipidemia; R79.89 Other specified abnormal findings of blood chemistry; R30.0 Dysuria; R00.1 Bradycardia, unspecified; R10.32 Left lower quadrant pain; Z71.89 Other specified counseling; Z86.006 Personal history of melanoma in-situ; Z98.890 Other specified postprocedural states; Z28.21 Immunization not carried out because of patient refusal; Z71.85 Encounter for immunization safety counseling
CPT/HCPCS: 36415; 80053; 81003; 82172; 82728; 83036; 83540; 85007; 85027; 86704; 86706; 86709; 86803; 87340; 87389

== ENCOUNTER 2025-10-06 12:23 | Outpatient (AMB) | payer MEDICARE, SELFPAY ==
--- NOTE | 2025-10-06 12:35 | A.OFFVIS_ITS ---
Intake Vital Signs 10/06/25 12:38 Height 5 ft 7 in Weight 164 lb BMI 25.7 BP 122/82 Blood Pressure Location Lt brachial Position Sitting Respiration 14 Pulse 48 L Pulse Source Pulse Oximeter Temp 98.2 F Temp Source Oral Pulse Oximetry (%) 98 Oxygen Delivery Method Room Air Intake Visit Reasons: cpe -pls keep appt Intake Note: CPE Quencher Operator Required: No Allergies No Known Allergies Allergy (Verified 10/06/25 12:49) Medication List - Last Reconciled 10/06/25 by ANDREW Vigil-MAYTE electrolytes-dextrose 5 mL PO Q15M PRN glucosamine HCl 1,500 mg PO DAILY levothyroxine 75 mcg PO DAILY 90 days meloxicam 15 mg PO DAILY 30 days multivitamin (Multiple Vitamins tablet) 1 tab PO DAILY omega 9-mjf-mge-fish oil 60-90-500 mg (Fish Oil) 1 cap PO DAILY Do you need a note to return to daycare/school/sports/work: No HPI HPI Comments History of Present Illness Details Here today for AWV. The Medicare Annual Wellness Visit (AWV) is a yearly appointment with a health professional to identify health risks and help reduce them and to create or upd ate a personalized prevention plan. During a Medicare AWV, health professionals should also review any current opioid prescriptions, detect any cognitive impairment, and establish or update medical and family history. 70 y/o M with HLD, Hypothyroid, anemia/p ancytopenia, hx of melanoma, , hx of DVT RLE SurgHx: Y FHx: Y SocHx: Y Health Maintenance: See scanned preventative medicine assessment with personalized health plan and screening schedule. Colon: cologuard 03/26/24 Vaccines: Shingles, Flu, Tdap and pneumonia (declined) AAA screen EKG: bradycardia and LVH [place] of Care: As documented Visual Acuity: exam 3 months Hearing Screening: no issues ACP: do not have HCP, working on this & living will with engineering lecturer; blank HCP and MOLST provided today along w/ education Dietary/Nutrition/Exercise Edu provided: Y During the course of the visit the patient was educated and counseled about appropriate screening and preventative services. Patient instructions were provided to the patient in written or electronic format. I have reviewed and verified the above information. History of Present Illness The patient is a 70 year old male presenting with an annual Medicare wellness visit and left lower quadrant abdominal pain. Abdominal pain, left lower quadrant: - The patient reports intermittent left lower quadrant abdominal pain that began approximately three months ago. - The pain is described as not severe bu t as a feeling that something does not feel right. - He notes the pain often occurs at nigh t between 2 and 3 a.m. after urinating, and is more pronounced when lying on his left side. - He also reports a sensation of things moving around when lying on his side. - The pain is not present every night an d is sometimes triggered by eating chocolate. - He denies hematuria or any discharge. Hypercholesterolemia: - The patient has a history of high chol esterol and has been trying to avoid medication. - His recent labs show an LDL of 171 mg/ dL and total cholesterol of 272 mg/dL, which are the highest they have been since 2019. - All of his siblings also have hypercho lesterolemia. Hyperkalemia: - Recent labs showed an elevated potassi um level of 5.5 mEq/L. - He has a history of elevated potassium which resolved without intervention and the cause was unknown. - The patient denies a diet high in pota ssium but does occasionally eat banana chips and uses electrolyte solutions after workouts due to heavy sweating. Elevated liver transaminases: - Recent lab work revealed elevated live r enzymes. - He denies alcohol use or taking any he rbal supplements. Hypothyroidism: - The patient has a history of hypothyro idism and is taking levothyroxine 75 mcg daily. - His thyroid level is normal on his cur rent medication. History of melanoma: - The patient has a history of melanoma with two occurrences, both of which were treated. - He sees a conche operator routinely and has an upcoming appointment in October. - There has been no recurrence. Pancytopenia: - The patient has a history of pancytope hema and has seen a journalism professor in the past. - He reports occasionally feeling lighth eaded but otherwise feels fine. - There is a family history of pancytope hema, affecting all four of his siblings. Sinus bradycardia: - An EKG performed today showed sinus br adycardia. - The patient's heart rate has consisten tly been on the lower side, and he is athletic. - He denies feeling weak or faint when h is heart rate is low but does experience dizziness at times when standing up. - negative cardio work up in the past Past Medical History - Hypothyroidism - History of elevated potassium - History of elevated liver enzymes - Hypercholesterolemia - Pancytopenia - History of melanoma - Dizziness Family History - Pancytopenia: All four siblings have a history of pancytopenia. - Hypercholesterolemia: All four sibling s have a history of high cholesterol. Social History - Alcohol: Denies alcohol use. - Exercise: The patient is athletic and active. - Activities: He prefers to run and also cycles indoors, rows, and walks a lot. - Nutrition: He uses electrolyte solutio ns for hydration after workouts due to heavy sweating. - Social Support: He lives with his . - Sexuality: He denies any risk of sexua lly transmitted diseases. Health Maintenance - The patient is due for a tetanus vacci nation. - He is working on advance directives wi a engineering lecturer. - Plan to administer a Tdap vaccine flakito curtis. Provided forms for health care proxy and advance care planning. - He declines the pneumonia vaccine at t his time. Review of Systems - Constitutional: Denies weakness or la ntness with bradycardia. Reports occasional lightheadedness and dizziness when standing up. - Cardiovascular: Denies palpitations. - Gastrointestinal: Reports intermittent left lower quadrant abdominal pain for the past 3 months. Denies changes in bowel habits. - Genitourinary: Denies hematuria or dis charge. - Neurological: Reports occasional dizzi ness on standing. Denies problems with memory. - Eyes: Denies any significant changes i n vision. - ENT: Denies concerns with hearing. Physical Exam General: Well developed, well nourished, in no acute distress. Appears stated age. Head: Normocephalic, atraumatic. Eyes: Pupils are equal, round and reactive to light and accommodation. Conjunctivae are clear. Scleras nonicteric bilat. Vision grossly normal. Ears: TMs clear AU, EACS WNL Nose: Patent, without discharge. Neck: No carotid bruit bilat. Supple, no adenopathy or thyromegaly. Breast: Edu on SBE Lungs: Clear to auscultation bilaterally. No rales, rhonchi or wheeze noted. Good air flow in all ortega. Heart: Regular rhythm, bradycardic, No murmurs, click, rubs or gallops are noted. EKG shows LVH with sinus bradycardia. Abdomen: Bowel sounds present in all quadrants. The abdomen is soft, with no masses or organomegaly noted. Hernia present in the mid upper abd (reports born with this , No other hernias are noted, TTP LLQ without rebound or gaurding : Deferred. Reviewed RHONA & recommendations Pulses: Peripheral pulses are equal and palpable bilaterally. Extremities: No clubbing, cyanosis nor edema is noted. Neurologic: Gait and station normal. Cranial Nerves 2-12 intact. Motor strength grossly symmetrical and intact. No sensory loss. Balance normal. Skin: No rashes, ulcers, or lesions noted. Turgor is good. Skin color is good. Hair and nails are without abnormalities. Normal appearing flat moles on back . Psych: Normal eye contact, affect and mood appropriate, and normal interactions. Patient is alert and appropriate to context. Results see below for labs 09/26/25 - EKG: Shows left ventricular hypertroph y (LVH) with sinus bradycardia. - Tests: Cologuard was normal. Medical Decision Making The patient is a 70-year-old male here for an annual wellness visit with a new complaint of intermittent left lower quadrant abdominal pain over the last three months. The pain is nonspecific but concerning in the context of his newly elevated liver enzymes, history of elevated potassium, and hypercholesterolemia. Given the constellation of symptoms and lab abnormalities, further investigation is warranted to rule out an underlying intra-abdominal process. While a colonoscopy could be considered, the wait time is prohibitive, and a CT scan of the abdomen provides a more immediate and broad evaluation to assess for any acute or subacute pathology, especially given the elevated LFTs. We will also repeat labs including a CBC, which was missed on the initial draw, electrolytes to re-evaluate the hyperkalemia, liver enzymes, iron, and ferritin. A urinalysis is also indicated to rule out a urinary source for his pain, given the association with urination. Regarding his hypercholesterolemia, the patient is now open to considering medication. He has expressed interest in apolipoprotein A and B testing to better stratify his cardiovascular risk before initiating therapy, which is reasonable. His bradycardia appears to be physiologic given his athletic status, and his pancytopenia has a strong family history and is being monitored. Preventative care was addressed, including updating his tetanus vaccination and providing materials for advance care planning. Plan 1. Abdominal Pain, Left Lower Quadrant - The patient presents with 3 months of intermittent left lower quadrant pain, worse after urination and when lying on the left side, associated with new-onset elevated liver enzymes. - Plan is to obtain a CT scan of the abd omen to evaluate for intra-abdominal pathology. - Will order a urinalysis to rule out a urinary tract issue. - Will repeat LFTs as part of a comprehe nsive lab panel. 2. Hypercholesterolemia - Recent labs showed LDL 171 mg/dL and t otal cholesterol 272 mg/dL. He has been avoiding medication but is now reconsidering. - Before starting medication, the patien t requested testing for apolipoprotein A and B to better assess cardiovascular risk. - Plan to order apolipoprotein A and B beti caballero. 3. Hyperkalemia - Recent CMP showed potassium of 5.5 mEq /L. He has a history of transient hyperkalemia. He uses electrolyte drinks. - Plan is to repeat electrolytes to conf irm the finding. 4. Pancytopenia - The patient has a known history of bruner cytopenia with a family history. He is largely asymptomatic. - A CBC was not performed on the recent lab draw. - Plan to order a CBC along with iron an d ferritin levels. 5. Bradycardia Asx. baseline. Patient Instructions - You will receive a Tdap (tetanus) shot today. Your arm may be sore; moving it will help reduce the soreness. - Proceed to the lab today for blood wor k and to provide a urine sample. You do not need to be fasting for these tests. - An order has been placed for a CT scan of your abdomen. The imaging department will call you to schedule the appointment after your insurance approves it, which usually takes a few weeks. - Lab and imaging results will be availa ble on the patient portal. I will also send feedback through the portal once I have reviewed them. - Stop at the front office administrator before you louis cedillo to schedule your next annual appoint ment. - Review the advance care planning and [facility] care proxy forms provided. - RTO 1 year sAWV, sooner as needed. Consent The patient provided verbal consent for all planned diagnostic tests, including repeat lab work, urinalysis, and a CT scan of the abdomen, after discussing the rationale for each. He also agreed to receive the Tdap vaccination during the visit. Patient was informed and verbally consented to the use of an ambient scribe for clinic note documentation during this visit. An additional 30 minutes was spent addressing the problem(s) noted at todays visit. This includes time spent before the visit reviewing the chart, time spent during the visit, and time spent after the visit on documentation reviewing laboratory results, diagnostic imaging, medications, performing a medically necessary evaluation, counseling on diagnoses, care coordination, ordering appropriate tests, ordering appropriate medications, review of tests performed by other providers, reporting test results with the patient, communication with other healthcare providers. [facility] Medical History (Updated 10/06/25 @ 13:33 by Va Bernard, MANAGER MECHANICAL-) Hypothyroidism Medicare annual wellness visit, subsequent (~10/06/25) Right leg DVT Surgical History (Updated 10/06/25 @ 13:26 by Va Bernard, ANDREW-MAYTE) Hx of biopsy Status post Mohs surgery Family History Maternal Grandfather Diabetes Hypertension Maternal Grandmother Hypertension Diabetes Social History (Updated 07/30/24 @ 15:11 by Franklin Campoverde) Household Members: Spouse Housing: House Alcohol intake: never Patient Tobacco Use Status: Never used Tobacco e-Cigarette/Vaping Use: Never Used Second Hand Smoke Exposure: No Current occupational status: retired Sexual orientation: Straight/Heterosexual Gender identity: Male Cognitive needs: No Hearing needs: No Vision needs: No Questionnaire Medicare Wellness Checkup What [age] What gender do you identify with?: male During the past 4 weeks, how much have you been bothered by emotional problems such as feeling anxious, depressed, irritable, sad or downhearted, and blue?: not at all During the past 4 weeks, has your physical & emotional health limited your social activities with family, friends, neighbors, or groups?: not at all During the past 4 weeks, how much bodily pain have you generally had?: very mild pain During the past 4 weeks, was someone available to help you if you needed & wanted help?: yes, as much as I wanted During the past 4 weeks, what was the hardest physical activity you could do for at least 2 minutes?: very heavy Can you get to places out of walking distance without help? (For eg., can you travel alone on buses, taxis or drive your car?): No Can you go shopping for groceries or clothes without someone's help?: No Can you prepare your own meals?: Yes Can you do your housework without help?: Yes Because of any health problems, do you need the help of another person with your personal care needs such as eating, bathing, dressing or getting around the house?: Yes Can you handle your own money without help?: Yes During the past 4 weeks, how would you rate your health in general?: very good During the past 4 weeks how have things been going for you?: pretty well Are you having difficulties driving your car?: yes, often Do you always fasten your seat belt when you are in a car?: yes, usually During past 4 weeks, have you been bothered by the following: never: Sexual problems?, Trouble eating well?, Teeth or denture problems? and Problems using the telephone? and seldom: Falling or dizzy when standing up and Tiredness or fatigue? Have you fallen 2 or more times in the past year?: No Are you afraid of falling?: Yes Are you a smoker?: no During the past 4 weeks, how many drinks of wine, beer, or other alcoholic beverages did you have?: no alcohol at all Do you exercise for about 20 minutes 3 or more times a week?: yes, all the time Have you been given information to help with the following?: yes: Hazards in your house that might hurt you? and yes: Keeping track of your medications? How often do you have trouble taking medicines the way you have been told to take them?: I always take medicine as prescribed How confident are you that you can control & manage most of your health problems?: very confident What is your race?: White Activity of Daily Living Bathing - sponge bath, tub bath or shower: receives no assistance (gets in/out by self, if usual bathing means Dressing - getting clothes from closets & drawers, including inner/outer garments & fasteners.: gets clothes & gets completely dressed without help Toileting - going to the 'toilet room' for urine/bowel elimination & cleaning self/arranging clothes: goes to toilet room, cleans self, arranges clothes without help Transfer: moves in & out of bed and chair without help (may use support object) Continence: controls urination/bowel movements completely by self Feeding: feeds self without help Total Score: 0 Information obtained from: patient Using telephone: independent Traveling: independent Shopping: independent Preparing meals: independent Housework: independent Taking medicine: independent Managing money: independent PHQ-9 Over the last 2 weeks, how often have you been bothered by any of the following problems? 1. Little interest or pleasure in doing things: not at all 2. Feeling down, depressed, or hopeless: not at all 3. Trouble falling or staying asleep, or sleeping too much: not at all 4. Feeling tired or having little energy: not at all 5. Poor appetite or overeating: not at all 6. Feeling bad about yourself - or that you are a failure or have let yourself or your family down: not at all 7. Trouble concentrating on things, such as reading the newspaper or watching television: not at all 8. Moving or speaking so slowly that other people could have noticed. Or the opposite - being so fidgety or restless that you have been moving around a lot more than usual: not at all 9. Thoughts that you would be better off or of hurting yourself in some way: not at all Total score: 0 Depression Screening Interpretation: Negative Depression Screening Done: Yes 97066 - PHQ-9 Billing: Yes Source: Developed by Drs. Rodríguez Carson, Chikis Loja, Marck Rae and colleagues, with an educational michel from [employer]. Physical Exam Vital Signs: Last Vital Signs Temp 98.2 F 10/06/25 12:38 Pulse 48 L 10/06/25 12:38 Resp 14 10/06/25 12:38 BP 122/82 10/06/25 12:38 Pulse Ox 98 10/06/25 12:38 Oxygen Delivery Method Room Air 10/06/25 12:38 BMI result Body Mass Index 25.7 Office Procedures EKG [id number], Complete Vision Screening 08654 - Vision Screening Immunizations Boostrix Tdap 2.5 Lf unit-8 mcg-5 Lf/0.5 mL intramuscular syringe Performing Provider: LINDA Vigil Performing Location: [facility] Administered by: Manool Centeno MA on 10/06/25 13:27 Dose Route Admin Location Dispensed Lot Number Expiration Date NDC Batting Machine Operator Insulation 0.5 mL IM Right Deltoid 0.5 mL [id number] 04/03/28 26906-760-40 [employer] Total Dispensed Waste 0.5 mL 0 % VIS Given Date VIS Provided VIS Publication Date 10/06/25 Single Vaccine 21 Eligibility Eligibility Date Funding Source Not [facility] Eligible 10/06/25 Private Results Reviewed Results Reviewed: Laboratory 09/26/25 Result Units Range Interpretation Provider Comments Sodium Level 143 mmol/L (135-145) Potassium Level 5.5 mmol/L (3.3-5.1) Delta High Chloride Level 108 mmol/L (96-108) Carbon Dioxide Level 29 mmol/L (22-29) Anion Gap 12 (12-20) Blood Urea Nitrogen 29 mg/dL (9-16) High Creatinine 1.03 mg/dL (0.5-1.4) Estimated Creatinine Clearance Calc Not Reportable Estimat Glomerular Filtration Rate > 60 Random Glucose 88 mg/dL (60-115) Estimated Average Glucose 103 mg/dL Hemoglobin A1c Percent 5.2 % (<6.0) Calcium Level 10.2 mg/dL (8.4-10.2) Total Bilirubin 0.5 mg/dL (0.0-1.0) Aspartate Amino Transf (AST/SGOT) 65 U/L (5-37) High Alanine Aminotransferase (ALT/SGPT) 53 U/L (0-40) High Alkaline Phosphatase 69 U/L (39-117) Total Protein 6.9 g/dL (6.5-8.0) Albumin 4.6 g/dL (3.5-5.0) Triglycerides Level 90 mg/dL (<150) Cholesterol Level 272 mg/dL (<200) High LDL Cholesterol, Calculated 171 mg/dL (<100) High HDL Cholesterol 83 mg/dL (>40) Prostate Specific Antigen Screen 0.36 ng/mL (<0.05-4.0) Vitamin B12 Level 922 pg/mL (200-900) High 25-Hydroxy Vitamin D Total 57.8 ng/mL (>30) Folate 13.7 ng/mL (> or = 4.0) Thyroid Stimulating Hormone (TSH) 2.44 uIU/mL (0.32-4.0) Laboratory Result Units Range Interpretation Provider Comments Urine Creatinine 56.14 mg/dL Urine Microalbumin < 5.0 mg/L Urine Microalbumin/Creatinine Ratio TNP Assessment & Plan Assessment & Plan (1) Medicare annual wellness visit, subsequent: Onset Date: ~10/06/25 Code(s): Z00.00 - Encounter for general adult medical examination without abnormal findings (2) ACP (advance care planning): Onset Date: ~10/06/25 Code(s): Z71.89 - Other specified counseling (3) Hyperkalemia: Code(s): E87.5 - Hyperkalemia (4) Pancytopenia: Code(s): D61.818 - Other pancytopenia (5) Elevated LFTs: Code(s): R79.89 - Other specified abnormal findings of blood chemistry (6) Hyperlipidemia: Code(s): E78.5 - Hyperlipidemia, unspecified Qualifiers: Hyperlipidemia type: mixed hyperlipidemia Qualified Code(s): E78.2 - Mixed hyperlipidemia (7) Bradycardia: Code(s): R00.1 - Bradycardia, unspecified (8) History of melanoma in situ: Code(s): Z86.006 - Personal history of melanoma in-situ (9) Left lower quadrant pain: Code(s): R10.32 - Left lower quadrant pain (10) History of colonoscopy: Onset Date: ~2023 Comment: negative cologaurd Code(s): Z98.890 - Other specified postprocedural states (11) Need for Tdap vaccination: Onset Date: ~10/06/25 Code(s): Z23 - Encounter for immunization (12) Pneumococcal vaccination declined: Onset Date: ~10/06/25 Code(s): Z28.21 - Immunization not carried out because of patient refusal (13) Hypothyroidism: Code(s): E03.9 - Hypothyroidism, unspecified Qualifiers: Hypothyroidism type: acquired Qualified Code(s): E03.9 - Hypothyroidism, unspecified (14) Vaccine counseling: Code(s): Z71.85 - Encounter for immunization safety counseling Plan . Orders: Orders Hemoglobin A1c Today Z00.00 - Encounter for general adult medical examination without abnormal findings IRON PROFILE Today D61.818 - Other pancytopenia, E78.5 - Hyperlipidemia, uns pecified, E87.5 - Hyperkalemia, R79.89 - Other specified abnormal findings of blood chemistry Complete Blood Count Man Dif Today D61.818 - Other pancytopenia, E78.5 - Hyperl ipidemia, unspecified, E87.5 - Hyperkalemia, R79.89 - Other specified abnormal findings of blood chemistry Apolipoprotein A1 Today D61.818 - Other pancytopenia, E78.5 - Hyperlipidemia, unspecified, E87.5 - Hyperkalemia, R79.89 - Other specified abnormal findings of blood chemistry Comprehensive Met. Panel Today D61.818 - Other pancytopenia, E78.5 - Hyperlipidemia, unspecified, E87.5 - Hyperkalemia, R79.89 - Other specified abnormal findings of blood chemistry CT abdomen pelvis wo IV con Today D61.818 - Other pancytopenia, R10.32 - Left lower quadrant pain, R79.89 - Other specified abnormal findings of blood chemistry, Z86.006 - Personal history of melanoma in-situ UA CC w/rflx Micro + Cult Today R30.0 - Dysuria HIV Ab/Ag Today D61.818 - Other pancytopenia, R79.89 - Other specified abnormal findings of blood chemistry Ferritin Today D61.818 - Other pancytopenia, E78.5 - Hyperlipidemia, unspecified, E87.5 - Hyperkalemia, R79.89 - Other specified abnormal findings of blood chemistry Apolipoprotein B Today D61.818 - Other pancytopenia, E78.5 - Hyperlipidemia, unspecified, E87.5 - Hyperkalemia, R79.89 - Other specified abnormal findings of blood chemistry TDaP Immunization Today Z23 - Encounter for immunization Hepatitis A,B,C Profile Today D61.818 - Other pancytopenia, R79.89 - Other specified abnormal findings of blood chemistry Patient Instructions: Health screenings for men You should visit your health care provider regularly, even if you feel healthy. The purpose of these visits is to: Screen for medical issues Assess your risk for future medical problems Encourage a healthy lifestyle Update vaccinations and other preventive care services Help you get to know your provider in case of an illness Information Even if you feel fine, you should still see your provider for regular checkups. These visits can help you avoid problems in the future. For example, the only way to find out if you have high blood pressure is to have it checked regularly. High blood sugar and high cholesterol level also may not have any symptoms in the early stages. Simple blood tests can check for these conditions. There are specific times when you should see your provider or receive specific health screenings. The [place] Preventive Services Task Force publishes a list of recommended screenings. Below are screening guidelines for men ages 40 to 64. BLOOD PRESSURE SCREENING Have your blood pressure checked at least once every year. Watch for blood pressure screenings in your area. Ask your provider if you can stop in to have your blood pressure checked. Ask your provider if you need your blood pressure checked more often if: You have diabetes, heart disease, kidney problems, or are overweight or have certain other health conditions You have a first-degree relative with high blood pressure You are Black Your blood pressure top number is from 120 to 129 mm Hg, or the bottom number is from 70 to 79 mm Hg If the top number is 130 mm Hg or greater or the bottom number is 80 mm Hg or greater, this is considered stage 1 hypertension. Schedule an appointment with your provider to learn how you can lower your blood pressure. Effects of age on blood pressure CHOLESTEROL SCREENING Cholesterol screening should begin at age 35 for men with no known risk factors for coronary heart disease. Repeat cholesterol screening should take place: Every 5 years for men with normal cholesterol levels More often if changes occur in lifestyle (including weight gain and diet) More often if you have diabetes, heart disease, kidney problems, or certain other conditions COLORECTAL CANCER SCREENING If you are under age 45, talk to your provider about getting screened. You may need to be screened if you have a strong family history of colon cancer or polyps. Screening may also be considered if you have risk factors such as a history of inflammatory bowel disease or polyps. If you are age 45 to 75, you should be screened for colorectal cancer. There are several screening tests available: A stool-based fecal occult blood (gFOBT) or fecal immunochemical test (FIT) every year A stool sDNA test every 1 to 3 years Flexible sigmoidoscopy every 5 years or every 10 years with stool testing FIT done every year CT colonography (virtual colonoscopy) every 5 years Colonoscopy every 10 years You may need a colonoscopy more often if you have risk factors for colorectal cancer, such as: Ulcerative colitis A personal or family history of colorectal cancer A history of growths in your colon called adenomatous polyps DENTAL EXAM Go to the dentist once or twice every year for an exam and cleaning. Your dentist will evaluate if you have a need for more frequent visits. DIABETES SCREENING All adults who do not have risk factors for diabetes should be screened starting at age 35 and repeated every 3 years. If you have other risk factors for diabetes, such as a first degree relative wi th diabetes, overweight or obesity, high blood pressure, prediabetes, or a history of heart disease, you may be tested more often. If you are overweight and have other risk factors, such as high blood pressure and are planning to become , screening is recommended. EYE EXAM Have an eye exam every 2 to 4 years ages 40 to 54 and every 1 to 3 years ages 55 to 64. Your provider may recommend more frequent eye exams if you have vision problems or glaucoma risk. Have an eye exam that includes an examination of your retina (back of your eye) at least every year if you have diabetes. IMMUNIZATIONS Commonly needed vaccines include: Flu shot: get one every year COVID-19 vaccine: ask your provider what is best for you Tetanus-diphtheria and acellular pertussis (Tdap) vaccine: have as one of your tetanus-diphtheria vaccines if you did not receive it as an adolescent Tetanus-diphtheria: have a booster (or Tdap) every 10 years Varicella vaccine: receive 2 doses if you never had chickenpox or the varicella vaccine and were born in 1979 or after Hepatitis B vaccine: receive 2, 3, or 4 doses, depending on your exact circumstances, if you did not receive these as a child or adolescent, until age 59 Shingles (herpes zoster) vaccine: at or after age 50 Ask your provider if you should receive other immunizations, especially if you have certain medical conditions, such as diabetes or are at increased risk for some diseases such as pneumonia. INFECTIOUS DISEASE SCREENING Screening for hepatitis C: all adults ages 18 to 79 should get a one-time test for hepatitis C. Screening for human immunodeficiency virus (HIV): all people ages 15 to 65 should get a one-time test for HIV. Depending on your lifestyle and medical history, you may need to be screened for infections such as syphilis, chlamydia, and other infections. LUNG CANCER SCREENING You should have an annual screening for lung cancer with low-dose computed tomography (LDCT) if: You are age 50 to 80 years AND You have a 20 pack-year smoking history AND You currently smoke or have quit within the past 15 years OSTEOPOROSIS SCREENING If you are age 50 to 64 and have risk factors for osteoporosis, you should discuss screening with your provider. Risk factors can include long-term steroid use, low body weight, smoking, heavy alcohol use, having a fracture after age 50, or a family history of hip fracture or osteoporosis. Osteoporosis PHYSICAL EXAM All adults should visit their provider from time to time, even if they are healthy. The purpose of these visits is to: Screen for diseases Assess risk of future medical problems Encourage a healthy lifestyle Update vaccinations and other preventive care services Maintain a relationship with a provider in case of an illness Your height, weight, and body mass index (BMI) should be checked at every exam. During your exam, your provider may ask you about: Depression and anxiety Diet and exercise Alcohol and tobacco use Safety, such as use of seat belts and smoke detectors Your medicines and risk for interactions PROSTATE CANCER SCREENING If you're 55 through 69 years old, before having the test, talk to your provider about the pros and cons of having a PSA test. Ask about: Whether screening decreases your chance of dying from prostate cancer. Whether there is any harm from prostate cancer screening, such as side effects from testing or overtreatment of cancer when discovered. Whether you have a higher risk of prostate cancer than others. If you are age 55 or younger, screening is not generally recommended. You should talk with your provider about if you have a higher risk for prostate cancer. Risk factors include: Having a family history of prostate cancer (especially a brother or father) Being If you choose to be tested, the PSA blood test is repeated over time (yearly or less often), though the best frequency is not known. Prostate examinations are no longer routinely done on men with no symptoms. Prostate cancer SKIN EXAM Your provider may check your skin for signs of skin cancer, especially if you're at high risk. People at high risk include those who have had skin cancer before, have close relatives with skin cancer, or have a weakened immune system. TESTICULAR EXAM The [place] Preventive Services Task Force (USPSTF) now recommends against performing testicular self-exams. Doing testicular self-exams has been shown to have little to no benefit. Quality Reporting (2019) Adult ([facility] 138/12/14/68) Smoking risk assessment performed?: Yes Patient Tobacco Use Status: Never used Tobacco Depression screening performed: Yes Screen Results: Yes Negative screen Systolic BP not done?: No Diastolic BP not done?: No BMI screening not done: No Sexual Activity Screening ([facility] 153) Sexually active?: Yes Immunizations (CMS 147, 117) Annual Influenza Vaccine: Yes Measles Antibody Test: No Mumps Antibody Test: No Rubella Antibody Test: No Varicella Antibody Test: No Anti Hepatitis A IgG Antigen test: No Anti Hepatitis B Virus Surface Ab test: No Fall Risk Screening (CMS 139) Last assessed Fall Risk: 10/06/25 Fall risk assessment: No Falls in past year Dementia Assessment (CMS 149) Cognitive assessment recorded: Yes Assessment of cognition with standardized tool: Yes Depression/Bipolar (159/160/161/177) PHQ-9: Total score: 0 Ophthalmol:Cataracts Visual Acuity (133) Visual acuity exam performed: Yes (see results) Coding Level of Care Code Medicare Subsequent (G0439) Est Pt Level 4 (88449) Diagnoses Medicare annual wellness visit, subsequent Z00.00 ACP (advance care planning) Z71.89 Hyperkalemia E87.5 Pancytopenia D61.818 Elevated LFTs R79.89 Mixed hyperlipidemia E78.2 Hyperlipidemia type: mixed hyperlipidemia Bradycardia R00.1 History of melanoma in situ Z86.006 Left lower quadrant pain R10.32 History of colonoscopy Z98.890 Need for Tdap vaccination Z23 Pneumococcal vaccination declined Z28.21 Acquired hypothyroidism E03.9 Hypothyroidism type: acquired Vaccine counseling Z71.85 CPT Codes Advance Care Planning - Time spent: 16-45 minutes ([id number]) EKG - CPT: 83807-[id number], Complete ([id number]) Vision Screening - Vision Screenin - Vision Screening ([id number]) Additional Codes PHQ-9 - 98381 - PHQ-9 Billing: Yes ([id number]) Advance Care Planning Advance Care Planning discussion: Exists, not on file Date of discussion: 10/06/25 Who was present: self Forms completed: Health Care Proxy, MOLST and Living will Time spent: 16-45 minutes Actual minutes spent: 16
[2025-10-06 12:38] VITALS: BP 122/82; PULSE 48; RESP 14; TEMP 36.8; O2SAT 98; BMI 25.7
--- OUTSIDE RECORDS SUMMARY | 2025-10-06 18:00 | XMS_ITS | Clinical Summary ---
Author Organization [facility] Address [address] [place] [id number] Phone Care Team Providers Care Environmental Auditor Name Role Phone Miguel Obrien MD Primary [...] file Insurance MEDICARE PART A & B [facility] [place] MEDICARE SUPPLEMENT MEDICARE PART A & B [facility] [place] MEDICARE SUPPLEMENT MEDICARE PART A & B MEDICARE SUPPLEMENT MEDICARE PART A & B MEDICARE SUPPLEMENT MEDICARE PART A & [place] [address] [address] [place] [address] [place] [address] MEDICARE PART A & B [facility] [place] MEDICARE SUPPLEMENT Care Teams Environmental Auditor Relationship Specialty Start Date End Date Miguel Obrien MD PCP - General Family Medicine 01/11/23 Additional Source Comments The information contained in this document represents components of the legal health record. It is not the complete legal health record.[facility]
== END 2025-10-06 16:21 | disposition home or self-care (01) ==
LOC: HO.HMCFM 12:25
PROVIDERS: PCP Family Medicine; Visit Provider Nurse Practitioner Family
DX: Z00.00 Encounter for general adult medical examination without abnormal findings (principal); D61.818 Other pancytopenia; E78.2 Mixed hyperlipidemia; E87.5 Hyperkalemia; R74.01 Elevation of levels of liver transaminase levels; R10.32 Left lower quadrant pain; E03.9 Hypothyroidism, unspecified; Z23 Encounter for immunization; Z71.89 Other specified counseling; Z86.006 Personal history of melanoma in-situ